=== PATIENT | male | born 1960 | race Caucasian/White ===

== ENCOUNTER 2016-12-08 07:33 | Outpatient (CLI) | payer BC ==
--- NOTE | 2016-12-08 10:28 | RAD ---
WATER SOLUBLE BARIUM ENEMA: Date: 12/08/16 COMPARISON: 11/03/16. HISTORY: Previous diverticulitis with sigmoid colon leak. Evaluate for possible resolution of leak. FINDINGS: Initial community artist radiograph demonstrates calcifications projecting over both renal silhouettes. The patient was administered water soluble contrast. There was evidence of a small leak in the mid s igmoid colon. The degree of leak has decreased when compared to the prior examination. Water soluble contrast does opacify the majority of the colon, down to the level of the cecum. IMPRESSION: Leak along the antemesenteric portion of the mid sigmoid colon. POS: [facility]
[2016-12-08] MEDS ORDERED: MD-Gastroview 120 ML BOT ONE (15:07)
== END 2016-12-08 07:34 | disposition home or self-care (01) ==
LOC: RAD 07:33
PROVIDERS: ATTEND Surgery
DX: K94.13 Enterostomy malfunction (principal)
CPT/HCPCS: 74270

== ENCOUNTER 2016-12-17 07:24 | Outpatient (CLI) | payer BC ==
--- NOTE | 2016-12-17 09:53 | CT ---
CT ABDOMEN AND PELVIS WITHOUT IV CONTRAST: Technique: Multiple axial tomograms were obtained through the abdomen and pelvis without IV enhancem ent. Rectal contrast was administered. History: Evaluate for colostomy reversal. FINDINGS: Lung bases are clear. Liver, spleen, pancreas unremarkable. Adrenal glands unremarkable. Both kidneys show numerous nonobstructing calculi in the upper collecting structures of both kidneys . Ureters are normal. Urinary bladder is unremarkable in appearance. Patient has a diverting ileostomy in the right abdomen. There is a right abdominal wall defect at th e ostomy. Opacified colon enters this defect in the subcutaneous tissues. Small bowel loops are norm al caliber with no evidence of bowel obstruction. There is anastomosis at the mid sigmoid. There is evidence of mild luminal narrowing at this anastom osis, however, there is no evidence of extravasation or leak at the anastomosis. There is a fluid collection in the subcutaneous adipose tissue seen in the midline and to the left o f midline which measures approximately 5 cm AP dimension x 12 cm width. IMPRESSION: 1. No evidence of anastomotic leak. There is luminal narrowing at the anastomosis. 2. Fluid dense collection in the subcutaneous adipose tissue anterior and to the left of midline. Findings were discussed with Dr. Cortes. POS: [facility]
[2016-12-17] MEDS ORDERED: Iopamidol 370 76% 50 ML VIAL FS ONE (15:59)
== END 2016-12-17 07:25 | disposition home or self-care (01) ==
LOC: CT 07:24
PROVIDERS: ATTEND Surgery
DX: K57.92 Diverticulitis of intestine, part unspecified, without perforation or abscess without bleeding (principal); K63.89 Other specified diseases of intestine
CPT/HCPCS: 74176

== ENCOUNTER 2017-01-05 08:30 | Outpatient (CLI) | payer BC ==
[2017-01-05 09:47] LABS: #Basophils 0.1 thou/uL (0.0-0.2); #Eosinphils 0.3 thou/uL (0.0-0.7); #Lymphocytes 1.8 thou/uL (1.20-3.40); #Monocytes 0.6 thou/uL (0.11-0.59); #Neutrophils 3.8 thou/uL (1.40-6.50); %Basophils 1.1 % (0.0-1.0); %Eosinophils 4.9 % (0.0-10.0); %Lymphocytes 26.8 % (21.0-51.0); %Monocytes 9.1 % (0.0-10.0); Hematocrit 44.9 % (42.0-52.0); Mean Platelet Volume 7.9 fL (7.4-10.4); Red Blood Cell (RBC) Count 5.17 mill/uL (4.70-6.10); White Blood Cell (WBC) Count 6.6 thou/uL (4.8-10.8)
[2017-01-05 09:56] LABS: Anion Gap 11 mmol/L (10-20); BUN (Urea Nitrogen) 23 mg/dL (8.4-25.7); Calc. Creatinine Clearance 0 mL/min (70-130); Calcium 9.4 mg/dL (7.8-10.44); Carbon Dioxide 27 mmol/L (22-29); Chloride 106 mmol/L (98-107); Estimated GFR-MDRD 63
== END 2017-01-05 08:31 | disposition home or self-care (01) ==
LOC: LABBT 08:30
PROVIDERS: ATTEND Surgery
DX: Z01.812 Encounter for preprocedural laboratory examination (principal); K57.92 Diverticulitis of intestine, part unspecified, without perforation or abscess without bleeding; K94.13 Enterostomy malfunction
CPT/HCPCS: 80048; 85025; 93005; 93010

== ENCOUNTER 2017-01-05 08:30 | Inpatient (IN) | payer BC ==
[2017-01-05 08:52] VITALS: BMI 37.8
[2017-01-12] MEDS ORDERED: cefOXitin 2 GM, Syringe 1 ML in Sterile Water 10 ML SLOW IVP SCH (12:30)
[2017-01-12] MEDS ORDERED: Propofol 200 MG/20 ML VIAL ONE (13:28)
[2017-01-12] MEDS ORDERED: Labetalol HCl 100 MG/20 ML VIAL ONE (13:28)
[2017-01-12] MEDS ORDERED: Ondansetron HCl/PF 4 MG/2 ML Vial ONE (13:28)
[2017-01-12] MEDS ORDERED: Lidocaine 1% PF 5 ML VIAL ONE (13:28)
[2017-01-12] MEDS ORDERED: ePHEDrine/0.9% NaCl/PF SYRINGE 50 mg/10 ml ONE (13:28)
[2017-01-12] MEDS ORDERED: Glycopyrrolate 0.2 MG/ML 5 ML SYRINGE ONE (13:28)
[2017-01-12] MEDS ORDERED: PHENYLEPHRINE-NS 100 MCG/ML 10 ML SYRINGE ONE (13:28)
[2017-01-12] MEDS ORDERED: Fentanyl 250 MCG/5 ML VIAL ONE (13:37)
[2017-01-12] MEDS ORDERED: Fentanyl 100 MCG/2 ML VIAL ONE ×4 (15:28→16:39)
[2017-01-12] MEDS ORDERED: Promethazine HCl 25 MG/ML VIAL IM PRN ×2 (16:06→19:24)
[2017-01-12] MEDS ORDERED: Ondansetron HCl/PF 4 MG/2 ML Vial IVP PRN ×2 (16:06→19:24)
[2017-01-12] MEDS ORDERED: Promethazine HCl 25 MG/ML VIAL SLOW IVP PRN (16:06)
[2017-01-12] MEDS ORDERED: Morphine CADD 1 MG/ML CADD IVPB PRN (16:07)
[2017-01-12] MEDS ORDERED: Zolpidem Tartrate 5 MG TAB PO PRN (16:07)
[2017-01-12] MEDS ORDERED: Naloxone HCl 0.4 mg/ml Vial IV PRN (16:07)
[2017-01-12] MEDS ORDERED: Morphine CADD 100 ML ONE (16:12)
[2017-01-12] MEDS ORDERED: Communication Order-Pharmacy FS SCH (16:15)
--- NOTE | 2017-01-12 18:46 | OP ---
DATE OF PROCEDURE: 01/12/2017 PREOPERATIVE DIAGNOSES: History of diverticulitis, attention to ileostomy. POSTOPERATIVE DIAGNOSES: History of diverticulitis, attention to ileostomy, incisional hernia. PROCEDURES: 1. Ileostomy takedown with small bowel to small bowel anastomosis. 2. Incisional hernia repair with 6 x 8 cm Strattice mesh. SURGEON: Papito Cortes M.D. ANESTHESIA: General. ESTIMATED BLOOD LOSS: 50 mL COMPLICATIONS: None. FINDINGS: Incisional hernia at ileostomy site with extensive herniation of small bowel, even cecum i nto the subcu fat in the right lower quadrant INDICATION: The patient is a 56-year-old male who previously underwent left colectomy and incisional hernia repair for chronic diverticulitis, now presents for ileostomy takedown, has a known incisiona l hernia to repair at the same time. DESCRIPTION OF PROCEDURE: The patient was taken to the operating room and placed supine on the table . After general anesthetic was obtained, the Bryan catheter was placed. The abdomen was shaved, pre pped and draped in a sterile fashion. The ostomy mucosa had been sewn using pursestring of silk. El liptical incision was used to ellipse out the ileostomy site. Subcu fat was dissected out from the i leostomy. Dissection was taken down all the way to the fascia. There were several loops of small amber wel in the part of the cecum more in this hernia sac. All dissected back to the fascial edge. All a dhesions were taken down into the abdomen through the ileostomy muscle defect. LETICIA-75 was used to fi re across the small bowel proximal and distal to the ileostomy site. The common mesentery was taken using Naomy clamps and silk ties. The small bowel was able to be brought together in an antimesenter ic fashion. Enterotomy was made on the antimesenteric surface of each and a LETICIA-75 was used to form the anastomosis. TA-60 was used to close the common enterotomy, crotches and the corners were all ov ersewn using silk suture. Mesenteric defect was closed using silk suture. The small bowel cecum bonilla rything placed back into the abdominal cavity under no tension. A 6 x 8 cm piece of Strattice mesh brought into the sterile field, placed in an underlay fashion, sewn via U stitch of Prolene transfasc ial circumferentially to the posterior fascia. The anterior fascia was closed using running PDS over the top. This subcutaneous space was irrigated using copious amounts of sterile solution. There wa s no ongoing bleeding. A #19 round drain brought out through a stab incision and left in this large cavity. Skin was closed using running 3-0 Vicryl followed by skin clips. Telfa carmen were placed in between each incision. Sterile dressings were placed. Patient was en route to recovery in stable c ondition. All instrument counts, needle counts, and lap counts were correct.
[2017-01-12] MEDS ORDERED: hydrALAZINE 20 MG/ML VIAL SLOW IVP PRN (19:24)
[2017-01-12] MEDS: Amlodipine 5 MG TAB PO SCH (21:44)
[2017-01-12] MEDS: Acetaminophen 1,000 MG in Premix Bag 1 BAG IVPB SCH (21:52)
[2017-01-12] MEDS: cefOXitin 2 GM, Syringe 1 ML in Sterile Water 10 ML SLOW IVP SCH (21:53)
[2017-01-12] MEDS: Famotidine 20 MG TAB PO SCH (21:56)
[2017-01-12] MEDS: Sodium Chloride 0.9% 1,000 ML IV SCH (21:56)
[2017-01-12] MEDS: Famotidine/PF 20 mg/2ml Vial SLOW IVP SCH (21:56)
[2017-01-12] MEDS ORDERED: cefOXitin 2 GM in Sodium Chloride 0.9% 100 ML IVPB SCH (22:00)
[2017-01-13] MEDS: Acetaminophen 1,000 MG in Premix Bag 1 BAG IVPB SCH ×3 (02:59→15:25)
[2017-01-13 05:45] LABS: #Eosinphils 0.2 thou/uL (0.0-0.7); #Lymphocytes 0.9 thou/uL (1.20-3.40); #Monocytes 0.6 thou/uL (0.11-0.59); #Neutrophils 7.8 thou/uL (1.40-6.50); %Basophils 0.1 % (0.0-1.0); %Eosinophils 2.4 % (0.0-10.0); %Lymphocytes 9.4 % (21.0-51.0); %Monocytes 6.7 % (0.0-10.0); Hematocrit 46.9 % (42.0-52.0); Red Blood Cell (RBC) Count 5.43 mill/uL (4.70-6.10); White Blood Cell (WBC) Count 9.6 thou/uL (4.8-10.8)
[2017-01-13 06:06] LABS: Anion Gap 10 mmol/L (10-20); BUN (Urea Nitrogen) 16 mg/dL (8.4-25.7); Calc. Creatinine Clearance 136 mL/min (70-130); Calcium 8.4 mg/dL (7.8-10.44); Carbon Dioxide 23 mmol/L (22-29); Chloride 103 mmol/L (98-107); Estimated GFR-MDRD 74
[2017-01-13] MEDS: cefOXitin 2 GM, Syringe 1 ML in Sterile Water 10 ML SLOW IVP SCH (06:09)
[2017-01-13] MEDS ORDERED: FLU VACC QS2017-18 36 mo. & older 0.5 ML SYRINGE IM ONE (09:00)
--- NOTE | 2017-01-13 09:00 | RAD ---
UPRIGHTI AND SUPINE VIEWS OF THE ABDOMEN: Date: 01-13-17 History: Drain placement. Comparison: 10-01-16 FINDINGS: Skin clips overlie the pelvis with radiopaque suture material seen overlying the right lower quadrant as well as the pelvis. There is partial visualization of drainage catheter overlying and just latera l to the right iliac wing. There is contrast seen within the colon and a few loops of small bowel. Th ere is mild gaseous distention and dilatation of a loop of small bowel in the left upper quadrant. There are increased density foci overlying the upper quadrant bilaterally which overlie the region of the renal shadows and was also present on the prior study and may be related to bilateral renal calc ashley. Degenerative changes are seen in the spine. IMPRESSION: 1. Post-surgical changes of the abdomen and pelvis. 2. Bilateral nephrolithiasis. 3. Nonspecific mildly dilated gas filled loop of small bowel in the left upper quadrant. POS: [facility]
[2017-01-13] MEDS: Famotidine 20 MG TAB PO SCH ×2 (09:37→21:14)
[2017-01-13] MEDS: Famotidine/PF 20 mg/2ml Vial SLOW IVP SCH ×2 (09:40→22:09)
[2017-01-13] MEDS ORDERED: Sodium Chloride 0.9% 1,000 ML IV SCH (13:31)
--- NOTE | 2017-01-13 13:43 | PRG ---
DATE OF SERVICE: 01/13/2017 Mr. Wiley is doing well, no nausea. He is ambulating without difficulty. He has urinated with the catheter out. PHYSICAL EXAMINATION: VITAL SIGNS: He is afebrile. Vital signs are stable. ABDOMEN: Soft. Dressings are clear. LABORATORY: White cell count is 9, hemoglobin 14. Creatinine 1.03. ASSESSMENT: Postop day #1 ileostomy takedown. PLAN: Advance to full liquid diet. If he tolerates that tonight, then discontinue [employer] tomorrow, pos sible home.
[2017-01-13] MEDS: Ketorolac Tromethamine 30 MG/ML VIAL IVP SCH ×2 (15:25→21:20)
[2017-01-13] MEDS: Sodium Chloride 0.9% 1,000 ML IV SCH (19:44)
[2017-01-13] MEDS: Amlodipine 5 MG TAB PO SCH (21:14)
[2017-01-14] MEDS: Ketorolac Tromethamine 30 MG/ML VIAL IVP SCH (06:01)
[2017-01-14] MEDS: Famotidine 20 MG TAB PO SCH (09:12)
[2017-01-14] MEDS: Famotidine/PF 20 mg/2ml Vial SLOW IVP SCH (09:13)
[2017-01-14] MEDS ORDERED: HYDROcodone/Acetaminophen 10/325 mg Tablet PO PRN (09:57)
[2017-01-14] MEDS ORDERED: Morphine 4 MG/ML VIAL SLOW IVP PRN ×2 (11:40)
[2017-01-14] MEDS: HYDROcodone/Acetaminophen 10/325 mg Tablet PO PRN ×2 (11:53→15:46)
[2017-01-14 12:06] VITALS: BP 142/88; TEMP 98.5
--- NOTE | 2017-01-14 14:03 | DIS ---
DATE OF ADMISSION: 01/12/2017 DATE OF DISCHARGE: 01/14/2017 ADMIT DIAGNOSIS: History of diverticulitis with attention to ileostomy. PROCEDURES: Ileostomy takedown and hernia repair by Dr. Cortes without complication. CONDITION AT DISCHARGE: Improved. STAFF: Dr. Cortes. HOSPITAL COURSE: On postop day 2, the patient is doing well. He is tolerating the full liquid diet. Pain is controlled on oral [place]. He is ambulatory and he has got serosanguineous output from his drain. He will be discharged home to follow up with me next week for drain removal.
== END 2017-01-14 16:25 | disposition home or self-care (01) | DRG 331 ==
LOC: 2NO 01-12 11:37 → SURG A 01-12 18:01
PROVIDERS: ADMIT Surgery; ATTEND Surgery
PROC: 0DBB0ZZ Excision of Ileum, Open Approach (ICD-10-PCS; principal; 2017-01-12)
PROC: 0WUF0JZ Supplement Abdominal Wall with Synthetic Substitute, Open Approach (ICD-10-PCS; 2017-01-12)
DX: K94.19 Other complications of enterostomy (principal); K43.2 Incisional hernia without obstruction or gangrene; Z87.19 Personal history of other diseases of the digestive system; Z23 Encounter for immunization
CPT/HCPCS: 36415; 36416; 74020; 80048; 85025; 90471; 90682; A4216; C1768; G0008; J0131; J0360; J0694; J1885; J2001; J2274; J2405; J2550; J2704; J3010; Q2036

== ENCOUNTER 2018-01-18 20:30 | Outpatient (CLI) | payer BC | END 2018-01-18 20:31 | disposition home or self-care (01) | LOC: SLEEPLAB 20:30 | PROVIDERS: ATTEND Family Medicine | DX: G47.33 Obstructive sleep apnea (adult) (pediatric) (principal); R53.83 Other fatigue; R40.0 Somnolence; R06.83 Snoring; G47.00 Insomnia, unspecified; K21.9 Gastro-esophageal reflux disease without esophagitis; E66.9 Obesity, unspecified; I10 Essential (primary) hypertension; Z68.39 Body mass index [BMI] 39.0-39.9, adult | CPT/HCPCS: 95810 ==

== ENCOUNTER 2018-02-05 19:30 | Outpatient (CLI) | payer BC | END 2018-02-05 19:31 | disposition home or self-care (01) | LOC: SLEEPLAB 19:30 | PROVIDERS: ATTEND Family Medicine | DX: G47.10 Hypersomnia, unspecified (principal); G47.33 Obstructive sleep apnea (adult) (pediatric); R53.83 Other fatigue; R40.0 Somnolence; E66.9 Obesity, unspecified; K21.9 Gastro-esophageal reflux disease without esophagitis; R06.83 Snoring; I10 Essential (primary) hypertension; Z68.39 Body mass index [BMI] 39.0-39.9, adult | CPT/HCPCS: 95810 ==

== ENCOUNTER 2018-07-14 08:48 | Inpatient (IN) | payer BC ==
[2018-07-14 09:24] LABS: #Eosinphils 0.1 thou/uL (0.0-0.7); #Lymphocytes 0.9 thou/uL (1.20-3.40); #Monocytes 0.6 thou/uL (0.11-0.59); #Neutrophils 7.4 thou/uL (1.40-6.50); %Basophils 0.4 % (0.0-1.0); %Eosinophils 1.5 % (0.0-10.0); %Lymphocytes 10.1 % (21.0-51.0); %Monocytes 6.2 % (0.0-10.0); %Neutrophils 81.8 % (42.0-75.0); Mean Corpuscular HGB CONC 32.1 g/dL (32.0-36.0); Mean Corpuscular Hemoglobin 29.1 pg (27.0-31.0); Mean Corpuscular Volume 90.7 fL (78.0-98.0); Mean Platelet Volume 7.6 fL (7.4-10.4); Platelet Count 183 thou/uL (130-400); RBC Distribution Width 15.1 % (11.5-14.5); Red Blood Cell (RBC) Count 5.83 mill/uL (4.70-6.10)
[2018-07-14 09:30] LABS: Bacteria/HPF None Seen HPF (None Seen); Bilirubin Negative (Negative); Blood, Urine Large (Negative); Clarity CLOUDY (Clear); Glucose, Urine (Dipstick) Negative (Negative); Hyaline Casts/LPF 0-3 HYALINE CAST LPF (0-3 Hyaline); Leukocyte Small (Negative); Nitrite Negative (Negative); Pathc Cast-AUWi Flag 0.27 (0-2.49); Protein, Urine (Dipstick) Negative (Neg-Trace); RBC/HPF GREATER THAN 50-TNTC HPF (0-3); Specific Gravity, Urine 1.017 (1.002-1.036); Squamous Epithelial None Seen HPF (0-3); Urobilinogen 0.2 mg/dL (0.2-1.0)
[2018-07-14] MEDS ORDERED: Morphine 4 MG/ML VIAL ONE ×2 (09:37→13:14)
[2018-07-14] MEDS ORDERED: Ondansetron PF 4 MG/2 ML Vial ONE ×3 (09:37→15:38)
[2018-07-14 09:50] LABS: ALT (SGPT) 26 U/L (8-55); AST (SGOT) 24 U/L (5-34); Albumin 4.6 g/dL (3.5-5.0); Alkaline Phosphatase 55 U/L (40-150); Anion Gap 15 mmol/L (10-20); BUN (Urea Nitrogen) 23 mg/dL (8.4-25.7); Calc. Creatinine Clearance 0 mL/min (70-130); Calcium 10.8 mg/dL (7.8-10.44); Carbon Dioxide 24 mmol/L (22-29); Chloride 104 mmol/L (98-107); Estimated GFR-MDRD 62; Globulin 3.3 g/dL (2.4-3.5); Glucose 112 mg/dL (70-105); Lipase 23 U/L (8-78); Potassium 4.9 mmol/L (3.5-5.1); Protein, Total 7.9 g/dL (6.0-8.3); Sodium 138 mmol/L (136-145)
[2018-07-14] MEDS ORDERED: Iopamidol 370 76% 50 ML VIAL FS ONE (11:23)
[2018-07-14] MEDS ORDERED: ISOVUE-370 76%-LOCM 1 ML ONE (11:23)
--- NOTE | 2018-07-14 12:42 | CT ---
CT ABDOMEN PELVIS WITH ORAL AND IV CONTRAST: HISTORY: Abdominal pain, nausea, vomiting COMPARISON: 12/17/2016 FINDINGS: The lung bases are unremarkable. The liver demonstrates decreased attenuation consistent with fatty i nfiltration but no focal mass or intrahepatic ductal dilatation. The spleen, pancreas, adrenal glands and right kidney are normal. Multiple nonobstructing left renal calculi present. No calcified gallstones are seen. There is a left-sided the fluid collection in the anterior abdominal wall musculature at the level of the umbilicus measuring 8.1 x 3.8 cm which is smaller compared to the previous study and likely postop seroma. There is a small bowel loop containing right lower anterior abdominal wall hernia with dilated affere nt loops. There is suggestion of mild inflammatory changes in the hernial sac. Normal-appearing appendix is seen. There are vascular calcifications without evidence of aneurysmal d ilatation of the abdominal aorta. There are degenerative changes in the spine. Small bilateral fat-containing inguinal hernias are seen. IMPRESSION: 1. RIGHT LOWER QUADRANT ABDOMINAL WALL HERNIA CONTAINING LOOPS OF SMALL BOWEL WITH PROBABLE OBSTRUCTI ON AND STRANGULATION. 2. Nonobstructing left renal calculi. 3. Fatty liver. Discussed over the telephone with Pricilla Mehta in the emergency room at 12:35 PM
[2018-07-14] MEDS ORDERED: Promethazine HCl 25 MG/ML VIAL IM PRN (13:51)
[2018-07-14] MEDS ORDERED: hydrALAZINE 20 MG/ML VIAL SLOW IVP PRN (13:51)
[2018-07-14] MEDS ORDERED: Dextrose 5% in Water 1,000 ML IV PRN (13:51)
[2018-07-14] MEDS ORDERED: Dextrose 50% Abboject 50 ML SYRINGE SLOW IVP PRN (13:51)
[2018-07-14] MEDS: Ondansetron PF 4 MG/2 ML Vial IVP PRN ×2 (15:44→22:42)
[2018-07-14] MEDS ORDERED: Fentanyl 100 MCG/2 ML VIAL SLOW IVP PRN (16:03)
--- NOTE | 2018-07-14 16:04 | HP ---
CHIEF COMPLAINT: Incisional hernia. 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 This was previously repaired by me. He had diverting ileostomy, ultimately underwent ileostomy reversal. At the time of ileostomy reversal, he had a large ostomy site hernia that was repaired with Strattice mesh. The patient has been doing quite well. He has been losing weight per my recommendations by doing a low carb diet. However, last night, he developed acute onset of right lower quadrant pain in the area of previous ileostomy reversal and has a bulge in the area. Seen in Emergency Department today, where CT scan shows incisional hernia. There is some intestine in the hernia itself. He did not vomit, but he had some nausea and bloating. The pain has resolved, unable to reduce it partially in the emergency room. He is nontachycardic and his infectious count is normal and he is afebrile. PAST MEDICAL HISTORY: Includes hypertension, hyperlipidemia, and morbid obesity. PAST SURGICAL HISTORY: As above. MEDICATIONS: Medicines taken daily include; 1. Crestor. 2. Amlodipine. 3. Potassium. ALLERGIES: LEVOFLOXACIN. SOCIAL HISTORY: No smoking, alcohol, or other drugs. REVIEW OF SYSTEMS: A 10-system review of systems otherwise negative unless described above. PHYSICAL EXAMINATION: VITAL SIGNS: His blood pressure is 147/87, his pulse is 83, respirations 20, and he is afebrile. HEENT: Sclerae anicteric. Oropharynx clear. NECK: No lymphadenopathy. CHEST: Clear. HEART: Regular rate and rhythm. ABDOMEN: Soft, mildly distended diffusely. No significant tenderness. He is tender in the area of the right lower quadrant. I was able to partially reduce his incisional hernia. LABORATORY DATA: White blood cell count is 9, hemoglobin is 17, and platelet count is 183. Sodium 138, potassium 4.9, creatinine 1.2, and glucose is 112. ASSESSMENT: Incisional hernia incarcerated small intestine, able to be reduced partially. No evidence of strangulation. PLAN: We will admit to the hospital tonight. Plan laparoscopic incisional hernia repair tomorrow. Job ID: [id number]
[2018-07-14] MEDS: Fentanyl 100 MCG/2 ML VIAL SLOW IVP PRN ×2 (16:25→20:18)
[2018-07-14] MEDS: D5 1/2 NS w/20 mEq KCL 1,000 ML IV SCH ×2 (16:25→22:47)
[2018-07-14] MEDS: Acetaminophen 1,000 MG in Premix Bag 1 BAG IVPB PRN ×2 (16:27→22:41)
[2018-07-14 17:38] VITALS: BMI 24.9
[2018-07-14] MEDS: Famotidine/PF 20 mg/2ml Vial SLOW IVP SCH (20:18)
[2018-07-14] MEDS ORDERED: Enoxaparin Sodium 40 MG/0.4 ML SYRINGE SC SCH (21:00)
[2018-07-15] MEDS: Acetaminophen 1,000 MG in Premix Bag 1 BAG IVPB PRN ×2 (04:42→10:22)
[2018-07-15] MEDS: D5 1/2 NS w/20 mEq KCL 1,000 ML IV SCH ×3 (05:37→18:51)
[2018-07-15 06:09] LABS: #Eosinphils 0.1 thou/uL (0.0-0.7); #Lymphocytes 1.5 thou/uL (1.20-3.40); #Monocytes 0.7 thou/uL (0.11-0.59); #Neutrophils 5.9 thou/uL (1.40-6.50); %Basophils 0.6 % (0.0-1.0); %Eosinophils 1.2 % (0.0-10.0); %Lymphocytes 18.2 % (21.0-51.0); %Monocytes 8.7 % (0.0-10.0); %Neutrophils 71.4 % (42.0-75.0); Hemoglobin 15.6 g/dL (14.0-18.0); Mean Corpuscular HGB CONC 31.1 g/dL (32.0-36.0); Mean Corpuscular Hemoglobin 28.5 pg (27.0-31.0); Mean Corpuscular Volume 91.9 fL (78.0-98.0); Mean Platelet Volume 8.3 fL (7.4-10.4); Platelet Count 173 thou/uL (130-400); RBC Distribution Width 15.1 % (11.5-14.5); Red Blood Cell (RBC) Count 5.48 mill/uL (4.70-6.10); White Blood Cell (WBC) Count 8.3 thou/uL (4.8-10.8)
[2018-07-15 06:36] LABS: Anion Gap 10 mmol/L (10-20); BUN (Urea Nitrogen) 17 mg/dL (8.4-25.7); Calc. Creatinine Clearance 81 mL/min (70-130); Calcium 9.4 mg/dL (7.8-10.44); Carbon Dioxide 27 mmol/L (22-29); Chloride 105 mmol/L (98-107); Estimated GFR-MDRD 68; Glucose 110 mg/dL (70-105); Potassium 4.4 mmol/L (3.5-5.1); Sodium 138 mmol/L (136-145)
[2018-07-15] MEDS: Famotidine/PF 20 mg/2ml Vial SLOW IVP SCH ×2 (08:44→21:03)
[2018-07-15] MEDS: Fentanyl 100 MCG/2 ML VIAL SLOW IVP PRN (08:48)
[2018-07-15] MEDS ORDERED: Midazolam HCl 2 mg/2 ml Vial ONE (13:00)
[2018-07-15] MEDS ORDERED: Fentanyl 100 MCG/2 ML VIAL ONE ×2 (13:00→16:17)
[2018-07-15] MEDS ORDERED: Bupivacaine/Epinephrine 0.25% 30 ML VIAL ONE (13:43)
[2018-07-15] MEDS ORDERED: Rocuronium Bromide 10 MG/ML (10ML VIAL) ONE (15:05)
[2018-07-15] MEDS ORDERED: Glycopyrrolate 0.2 MG/ML 5 ML SYRINGE ONE (15:05)
[2018-07-15] MEDS ORDERED: Ketorolac Tromethamine 30 MG/ML VIAL ONE (15:05)
[2018-07-15] MEDS ORDERED: PROPOFOL 200 MG/20 ML VIAL ONE (15:05)
[2018-07-15] MEDS ORDERED: Lidocaine 1% PF 5 ML VIAL ONE (15:05)
[2018-07-15] MEDS ORDERED: Ondansetron PF 4 MG/2 ML Vial ONE (15:05)
[2018-07-15] MEDS ORDERED: Promethazine HCl 25 MG/ML VIAL SLOW IVP PRN (16:41)
[2018-07-15] MEDS ORDERED: diphenhydrAMINE 50 MG/ML VIAL IVP PRN (16:41)
[2018-07-15] MEDS ORDERED: diphenhydrAMINE 25 MG CAP PO PRN (16:41)
[2018-07-15] MEDS ORDERED: Promethazine HCl 25 MG/ML VIAL IM PRN ×3 (16:41→17:44)
[2018-07-15] MEDS ORDERED: Ondansetron HCl/PF 4 MG/2 ML Vial IVP PRN (16:41)
[2018-07-15] MEDS ORDERED: Zolpidem Tartrate 5 MG TAB PO PRN (16:41)
[2018-07-15] MEDS ORDERED: Naloxone HCl 0.4 mg/ml Vial IV PRN (16:41)
[2018-07-15] MEDS ORDERED: HYDROmorphone 2 MG/ML VIAL SLOW IVP PRN (16:41)
[2018-07-15] MEDS ORDERED: diphenhydrAMINE 50 MG/ML VIAL IM PRN (16:41)
[2018-07-15] MEDS ORDERED: Ondansetron PF 4 MG/2 ML Vial IVP PRN ×2 (16:41→17:44)
[2018-07-15] MEDS ORDERED: fentaNYL Citrate/PF 2,000 MCG in Sodium Chloride 0.9% 60 ML IV PRN (16:41)
[2018-07-15] MEDS ORDERED: Communication Order-Pharmacy FS SCH (16:45)
[2018-07-15] MEDS ORDERED: hydrALAZINE 20 MG/ML VIAL SLOW IVP PRN (17:44)
[2018-07-15] MEDS: Acetaminophen 1,000 MG in Premix Bag 1 BAG IVPB SCH ×2 (18:51→23:43)
[2018-07-15] MEDS: Famotidine 20 MG TAB PO SCH (21:03)
[2018-07-15] MEDS: cefOXitin Sodium/Dextrose,Iso 2 GM in Premix Bag 1 BAG IVPB SCH (21:03)
[2018-07-16] MEDS: D5 1/2 NS w/20 mEq KCL 1,000 ML IV SCH ×3 (04:44→20:33)
[2018-07-16 05:06] LABS: #Eosinphils 0.1 thou/uL (0.0-0.7); #Lymphocytes 0.5 thou/uL (1.20-3.40); #Monocytes 0.5 thou/uL (0.11-0.59); #Neutrophils 4.8 thou/uL (1.40-6.50); %Eosinophils 2.1 % (0.0-10.0); %Lymphocytes 8.7 % (21.0-51.0); %Monocytes 9.1 % (0.0-10.0); %Neutrophils 80.1 % (42.0-75.0); Hemoglobin 15.6 g/dL (14.0-18.0); Mean Corpuscular HGB CONC 31.8 g/dL (32.0-36.0); Mean Corpuscular Hemoglobin 29.7 pg (27.0-31.0); Mean Corpuscular Volume 93.5 fL (78.0-98.0); Mean Platelet Volume 8.1 fL (7.4-10.4); Platelet Count 149 thou/uL (130-400); RBC Distribution Width 15.2 % (11.5-14.5); Red Blood Cell (RBC) Count 5.25 mill/uL (4.70-6.10); White Blood Cell (WBC) Count 5.9 thou/uL (4.8-10.8)
[2018-07-16 05:29] LABS: Anion Gap 9 mmol/L (10-20); BUN (Urea Nitrogen) 18 mg/dL (8.4-25.7); Calc. Creatinine Clearance 72 mL/min (70-130); Calcium 8.4 mg/dL (7.8-10.44); Carbon Dioxide 26 mmol/L (22-29); Chloride 106 mmol/L (98-107); Estimated GFR-MDRD 59; Glucose 131 mg/dL (70-105); Potassium 4.8 mmol/L (3.5-5.1); Sodium 136 mmol/L (136-145)
[2018-07-16] MEDS: Acetaminophen 1,000 MG in Premix Bag 1 BAG IVPB SCH ×2 (05:36→12:06)
[2018-07-16] MEDS: cefOXitin Sodium/Dextrose,Iso 2 GM in Premix Bag 1 BAG IVPB SCH (06:12)
--- NOTE | 2018-07-16 07:16 | PDOC.GSPN ---
Surgery Progress Note: Subj - Subjective Patient reports: no new complaints, pain well controlled (05/26 - decreases effectively with IV tylenol and occasional sonoscope operator use), tolerating liquids well Surgery Progress Note: Obj - Vital signs Vital signs: Vital Signs - Most Recent Temp Pulse Resp BP Pulse Ox 98.9 F 88 18 115/76 94 L 07/16/18 04:00 07/16/18 04:00 07/16/18 04:00 07/16/18 04:00 07/16/18 04:00 - Physical Exam General: no distress Cardiovascular: regular rate and rhythm Respiratory: clear to auscultation, normal expansion, normal respiratory effort , breath sounds present Abdomen: soft, nondistended, appropriately tender Wound: dressing clean,dry,intact, healing well Surgery Progress Note: Results - Labs Result Diagrams: 07/16/18 04:28 07/16/18 04:28 Lab results: Laboratory Results - last 24 hr 07/16/18 07/16/18 04:28 04:28 WBC 5.9 RBC 5.25 Hgb 15.6 Hct 49.1 MCV 93.5 MCH 29.7 MCHC 31.8 L RDW 15.2 H Plt Count 149 MPV 8.1 Neutrophils % 80.1 H Lymphocytes % 8.7 L Monocytes % 9.1 Eosinophils % 2.1 Basophils % 0.0 Neutrophils # 4.8 Lymphocytes # 0.5 L Monocytes # 0.5 Eosinophils # 0.1 Basophils # 0.0 Sodium 136 Potassium 4.8 Chloride 106 Carbon Dioxide 26 Anion Gap 9 L BUN 18 Creatinine 1.25 Estimated GFR (MDRD) 59 Glucose 131 H Calcium 8.4 Surgery Progress Note: A/P - Problem (1) Incarcerated hernia Current Visit: Yes Code(s): K46.0 - UNSP ABDOMINAL HERNIA WITH OBSTRUCTION, WITHOUT GANGRENE Status: Acute (2) Hx of ileostomy Current Visit: No Code(s): Z98.890 - OTHER SPECIFIED POSTPROCEDURAL STATES Status: Resolved - Plan Plan: Post-op day 1 of laparoscopic hernia repair converted to open incarcerated incisional hernia repair. Clear liquids well tolerated. Ambulated this AM. -Progress to full liquid diet later today. -Consider removal of sonoscope operator when IV tylenol is sufficient for pain control. Addendum - Physician - Physician Attestation Date/Time: 07/16/18 0846 I personally performed or re-performed the physical examination and medical decision making. I have verified all student documentation or findings, including history, physical exam and/or medical decision making.
--- NOTE | 2018-07-16 08:27 | PDOC.GSPN ---
Surgery Progress Note: Subj - Subjective Narrative: Pain well controlled. No nausea with clears. Garcia out Surgery Progress Note: Obj - Vital signs Vital signs: Vital Signs - Most Recent Temp Pulse Resp BP Pulse Ox 98.9 F 88 18 115/76 94 L 07/16/18 04:00 07/16/18 04:00 07/16/18 04:00 07/16/18 04:00 07/16/18 04:00 - Physical Exam General: no distress Cardiovascular: regular rate and rhythm Respiratory: clear to auscultation Abdomen: soft, appropriately tender Wound: dressing clean,dry,intact Surgery Progress Note: Results - Labs Result Diagrams: 07/16/18 04:28 07/16/18 04:28 Lab results: Laboratory Results - last 24 hr 07/16/18 07/16/18 04:28 04:28 WBC 5.9 RBC 5.25 Hgb 15.6 Hct 49.1 MCV 93.5 MCH 29.7 MCHC 31.8 L RDW 15.2 H Plt Count 149 MPV 8.1 Neutrophils % 80.1 H Lymphocytes % 8.7 L Monocytes % 9.1 Eosinophils % 2.1 Basophils % 0.0 Neutrophils # 4.8 Lymphocytes # 0.5 L Monocytes # 0.5 Eosinophils # 0.1 Basophils # 0.0 Sodium 136 Potassium 4.8 Chloride 106 Carbon Dioxide 26 Anion Gap 9 L BUN 18 Creatinine 1.25 Estimated GFR (MDRD) 59 Glucose 131 H Calcium 8.4 Surgery Progress Note: A/P - Problem (1) Incarcerated hernia Current Visit: Yes Code(s): K46.0 - UNSP ABDOMINAL HERNIA WITH OBSTRUCTION, WITHOUT GANGRENE Status: Acute - Plan Plan: POD 1 -advance to fulls -garcia out -home in next few days
[2018-07-16] MEDS: Losartan 25 MG TAB PO SCH (08:49)
[2018-07-16] MEDS: Famotidine/PF 20 mg/2ml Vial SLOW IVP SCH ×2 (08:49→20:58)
[2018-07-16] MEDS: Famotidine 20 MG TAB PO SCH ×2 (08:50→20:30)
[2018-07-16] MEDS ORDERED: HYDROcodone/Acetaminophen 10/325 mg Tablet PO PRN (14:26)
[2018-07-16] MEDS ORDERED: traMADol HCl 50 MG TAB PO PRN (14:27)
[2018-07-16] MEDS: HYDROcodone/Acetaminophen 10/325 mg Tablet PO PRN ×2 (16:12→20:30)
[2018-07-16] MEDS: traMADol HCl 50 MG TAB PO PRN (19:28)
[2018-07-17] MEDS: HYDROcodone/Acetaminophen 10/325 mg Tablet PO PRN ×4 (00:17→20:32)
[2018-07-17] MEDS: Calcium Carbonate 500 MG ChewTAB PO PRN ×3 (02:36→20:31)
[2018-07-17] MEDS: traMADol HCl 50 MG TAB PO PRN ×3 (03:52→17:00)
[2018-07-17] MEDS: Famotidine/PF 20 mg/2ml Vial SLOW IVP SCH ×2 (08:22→19:53)
[2018-07-17] MEDS: Losartan 25 MG TAB PO SCH (08:23)
[2018-07-17] MEDS: Famotidine 20 MG TAB PO SCH ×2 (08:23→20:31)
--- NOTE | 2018-07-17 09:17 | PDOC.GSPN ---
Surgery Progress Note: Subj - Subjective Patient reports: no new complaints, tolerating liquids well Surgery Progress Note: Obj - Vital signs Vital signs: Vital Signs - Most Recent Temp Pulse Resp BP Pulse Ox 98.6 F 99 18 129/85 97 07/17/18 07:15 07/17/18 07:15 07/17/18 07:15 07/17/18 07:15 07/17/18 07:15 - Physical Exam General: no distress Respiratory: clear to auscultation Abdomen: soft, appropriately tender Wound: healing well (carmen removed. dressing replaced) Surgery Progress Note: Results - Labs Result Diagrams: 07/16/18 04:28 07/16/18 04:28 Surgery Progress Note: A/P - Problem (1) Incarcerated hernia Current Visit: Yes Code(s): K46.0 - UNSP ABDOMINAL HERNIA WITH OBSTRUCTION, WITHOUT GANGRENE Status: Acute (2) Hx of ileostomy Current Visit: No Code(s): Z98.890 - OTHER SPECIFIED POSTPROCEDURAL STATES Status: Resolved - Plan Plan: HL IV -home tomorrow if doing well
[2018-07-18] MEDS: traMADol HCl 50 MG TAB PO PRN ×3 (00:25→16:06)
[2018-07-18] MEDS: HYDROcodone/Acetaminophen 10/325 mg Tablet PO PRN ×2 (04:34→11:40)
[2018-07-18] MEDS: Losartan 25 MG TAB PO SCH (08:18)
[2018-07-18] MEDS: Famotidine 20 MG TAB PO SCH ×2 (08:18→20:22)
[2018-07-18] MEDS: Famotidine/PF 20 mg/2ml Vial SLOW IVP SCH ×2 (08:19→20:23)
[2018-07-18] MEDS ORDERED: Milk Of Magnesia 30 ML UDCUP PO SCH (09:15)
[2018-07-18] MEDS: Tamsulosin HCl 0.4 MG CAP PO SCH (09:24)
--- NOTE | 2018-07-18 09:51 | PRG ---
DATE OF SERVICE: 07/18/2018 SUBJECTIVE: Postop day 2, Mr. Wiley has no complaints of significant pain. No nausea. He has not had a bowel movement yet. He is having some postvoid residual dribbling. He is ambulatory. OBJECTIVE: VITAL SIGNS: He is afebrile. Vital signs are stable. ABDOMEN: Soft, minimally distended. Midline wound healing well. No infection. ASSESSMENT: Postop incisional hernia repair and small bowel resection. PLAN: We will add Flomax back since he is having a little difficulty and advance to GI soft diet this evening. We will give him a dose of milk of magnesia today as well. I anticipate he will be discharged tomorrow. Job ID: [id number]
[2018-07-19] MEDS: HYDROcodone/Acetaminophen 10/325 mg Tablet PO PRN ×2 (00:38→09:25)
[2018-07-19] MEDS: traMADol HCl 50 MG TAB PO PRN (05:10)
[2018-07-19] MEDS: Famotidine/PF 20 mg/2ml Vial SLOW IVP SCH (07:48)
[2018-07-19 08:34] VITALS: BP 144/91; TEMP 98.7
[2018-07-19] MEDS: Tamsulosin HCl 0.4 MG CAP PO SCH (09:27)
[2018-07-19] MEDS: Famotidine 20 MG TAB PO SCH (09:27)
[2018-07-19] MEDS: Losartan 25 MG TAB PO SCH (09:27)
--- NOTE | 2018-07-19 10:03 | DIS ---
DATE OF ADMISSION: 07/14/2018 DATE OF DISCHARGE: ADMITTING DIAGNOSIS: Incisional hernia, incarcerated. DISCHARGE DIAGNOSIS: Incisional hernia, incarcerated. PROCEDURE PERFORMED: Laparoscopic converted to open lysis of adhesions, small bowel resection and incisional hernia repair by Sebastian without complication. CONDITION ON DISCHARGE: Improved. STAFF: Papito Cortes MD HOSPITAL COURSE: The patient postop course was uneventful. He had carmen in his wound that were removed on postop day 3. His diet was slowly advanced. His pain is well controlled. He is afebrile. He is going to follow up with me in 48 hours for wound check. Job ID: [id number]
--- NOTE | 2018-07-20 11:11 | OP ---
DATE OF PROCEDURE: 07/15/2018 PREOPERATIVE DIAGNOSIS: Incisional hernia, strangulated. POSTOPERATIVE DIAGNOSIS: Incisional hernia, strangulated. PROCEDURES PERFORMED: Laparoscopic converted to open incisional hernia repair without mesh, small-bowel resection anastomosis. ANESTHESIA: General. ESTIMATED BLOOD LOSS: Minimal. COMPLICATIONS: None. SPECIMEN: Small intestine. TECHNIQUE: The patient was taken to the operating room and laid supine on the operating room table. After general anesthetic was obtained, a Bryan was placed. The abdomen was shaved, prepped, and draped in a sterile fashion. Left subcostal 5 mm Optiview trocar was placed in usual fashion and high-flow pneumoperitoneum was obtained. Upper abdominal 5 mm ports were placed and adhesiolysis was taken down from the posterior abdominal wall. Multiple adhesions were taken down to try to expose the strangulated hernia in the right lower quadrant. Robot ports were placed and docked to the robot and robotic lysis of adhesions was performed as well. Most of the adhesions were taken down. There was a small loop of intestine that was stuck up in the hernia, this could not be reduced. When it was pulled down with more tension, it tore the small bowel. Decision was made to open, midline incision was made. The small intestine was able to be removed from the hernia site. The posterior fascia was closed using running PDS suture. The small bowel was brought up and a few enterotomies proximal and distal were repaired primarily. There was an area of greater than 50% circumferential injury and this was removed using LETICIA 75 stapler. A azrn-oh-xdcl anastomosis was performed with LETICIA 75 stapler. The common enterotomy was closed using Vicryl suture. A crotch stitch was placed and the mesenteric defect was closed. The abdomen was irrigated using sterile solution. There was no other evidence of injury to any intraabdominal structures. Midline fascia was closed using #1 PDS from the top to the bottom and tied in the middle. Subcutaneous tissues were irrigated. The skin was closed loosely using skin julisa. Telfa carmen were placed in between. The patient was sent to Recovery in stable condition. All instrument counts, needle counts, and lap counts were correct. Job ID: [id number]
== END 2018-07-19 11:45 | disposition home or self-care (01) | DRG 331 ==
LOC: ERS 08:48 → ERHOLD 13:45 → SURG A 15:54
PROVIDERS: ADMIT Surgery; ATTEND Surgery
PROC: 0WQF0ZZ Repair Abdominal Wall, Open Approach (ICD-10-PCS; principal; 2018-07-15)
PROC: 0DQ80ZZ Repair Small Intestine, Open Approach (ICD-10-PCS; 2018-07-15)
PROC: 0WJF4ZZ Inspection of Abdominal Wall, Percutaneous Endoscopic Approach (ICD-10-PCS; 2018-07-15)
DX: K43.0 Incisional hernia with obstruction, without gangrene (principal); I10 Essential (primary) hypertension; E78.5 Hyperlipidemia, unspecified; E66.01 Morbid (severe) obesity due to excess calories; Z68.24 Body mass index [BMI] 24.0-24.9, adult; Z98.890 Other specified postprocedural states
CPT/HCPCS: 36415; 74177; 80048; 80053; 81003; 81015; 83605; 83690; 85025; 87040; 88307; 96361; 96374; 96375; 96376; J0131; J0360; J0690; J0694; J1650; J1885; J2001; J2250; J2270; J2405; J2704; J3010; J3490; Q9966; Q9967; S0028

== ENCOUNTER 2018-07-23 09:09 | Observation (INO) | payer BC ==
[2018-07-23] MEDS ORDERED: hydrALAZINE 20 MG/ML VIAL SLOW IVP PRN (09:32)
[2018-07-23] MEDS ORDERED: Promethazine HCl 25 MG/ML VIAL IM PRN (09:32)
[2018-07-23] MEDS ORDERED: Dextrose 50% Abboject 50 ML SYRINGE SLOW IVP PRN (09:32)
[2018-07-23] MEDS ORDERED: Dextrose 5% in Water 1,000 ML IV PRN (09:32)
[2018-07-23] MEDS ORDERED: HYDROcodone/Acetaminophen 7.5/325 mg Tablet PO PRN (09:32)
[2018-07-23] MEDS ORDERED: Sodium Chloride 0.9% 1,000 ML IV SCH (09:32)
[2018-07-23] MEDS ORDERED: Morphine 2 MG/ML SYRINGE SLOW IVP PRN (10:10)
[2018-07-23] MEDS: Morphine 4 MG/ML VIAL SLOW IVP PRN ×2 (10:35→15:56)
[2018-07-23] MEDS: Ondansetron PF 4 MG/2 ML Vial IVP PRN ×2 (10:36→15:56)
[2018-07-23] MEDS: D5 1/2 NS w/20 mEq KCL 1,000 ML IV SCH ×2 (10:37→19:03)
[2018-07-23] MEDS: Nicotine 21 MG PATCH TOP SCH (12:47)
[2018-07-23] MEDS: Piperacillin/Tazobactam 3.375 GM in Sodium Chloride 0.9% 100 ML IVPB SCH ×3 (12:47→23:34)
[2018-07-23 14:02] VITALS: BMI 25.0
--- NOTE | 2018-07-23 14:57 | HP ---
CHIEF COMPLAINT: Wound infection. HISTORY OF PRESENT ILLNESS: This is a 58-year-old male, who recently underwent exploratory laparotomy, lysis of adhesions, small bowel resection for incarcerated and strangulated former ileostomy site hernia. He had previous Strattice mesh. I had attempted to do this laparoscopic, but he had just a small area of the small bowel that was injured during dissection up in the hernia and so it was converted to an open procedure with a small-bowel resection. I saw him earlier in the week and he was doing quite well. However, in the last few days, he started to feel worse, tired, fever, feeling run down. Seen in the office this morning, where he was found to have a wound infection. I open the wound in the office. The fascia feels intact underneath you can see the old Strattice from prior surgery, but no obvious evisceration. PAST MEDICAL HISTORY: Hypertension and hyperlipidemia. PAST SURGICAL HISTORY: As above. MEDICATIONS: Taken at home: 1. Amlodipine. 2. Crestor. 3. Potassium. ALLERGIES: LEVOFLOXACIN. SOCIAL HISTORY: No smoking, alcohol, or other drugs. REVIEW OF SYSTEMS: A 10-system review of systems otherwise negative unless described above. PHYSICAL EXAMINATION: VITAL SIGNS: Blood pressure is 159/103, pulse 80, respirations 18, and temperature 98.6. CHEST: Clear. HEART: Regular rate and rhythm. ABDOMEN: Soft, mildly distended diffusely without guarding or rebound. Midline hernia with wound infection. The PDS is loose in the wound. I cannot put my finger all the way into the abdomen at any point. ASSESSMENT: Wound infection, status post incarcerated and strangulated incisional hernia repair. PLAN: Admit to hospital for IV antibiotics and wound VAC. We will do a liquid diet today since he is having nausea that can likely be advanced. Job ID: [id number]
[2018-07-23] MEDS: HYDROcodone/Acetaminophen 7.5/325 mg Tablet PO PRN ×2 (18:41→23:41)
[2018-07-23] MEDS: Enoxaparin Sodium 40 MG/0.4 ML SYRINGE SC SCH (21:46)
[2018-07-23] MEDS: Famotidine 20 MG TAB PO SCH (21:46)
[2018-07-23] MEDS: Famotidine/PF 20 mg/2ml Vial SLOW IVP SCH (21:46)
[2018-07-24] MEDS: HYDROcodone/Acetaminophen 7.5/325 mg Tablet PO PRN ×3 (05:10→21:36)
[2018-07-24] MEDS: Piperacillin/Tazobactam 3.375 GM in Sodium Chloride 0.9% 100 ML IVPB SCH ×3 (05:11→18:08)
[2018-07-24 05:34] LABS: #Basophils 0.1 thou/uL (0.0-0.2); #Eosinphils 0.2 thou/uL (0.0-0.7); #Lymphocytes 1.4 thou/uL (1.20-3.40); #Monocytes 0.8 thou/uL (0.11-0.59); #Neutrophils 5.1 thou/uL (1.40-6.50); %Basophils 0.7 % (0.0-1.0); %Eosinophils 3.2 % (0.0-10.0); %Lymphocytes 18.4 % (21.0-51.0); %Monocytes 9.9 % (0.0-10.0); %Neutrophils 67.9 % (42.0-75.0); Hemoglobin 13.7 g/dL (14.0-18.0); Mean Corpuscular HGB CONC 32.9 g/dL (32.0-36.0); Mean Corpuscular Hemoglobin 30.5 pg (27.0-31.0); Mean Corpuscular Volume 92.6 fL (78.0-98.0); Platelet Count 287 thou/uL (130-400); RBC Distribution Width 14.5 % (11.5-14.5); Red Blood Cell (RBC) Count 4.48 mill/uL (4.70-6.10); White Blood Cell (WBC) Count 7.6 thou/uL (4.8-10.8)
[2018-07-24 05:44] LABS: Anion Gap 10 mmol/L (10-20); BUN (Urea Nitrogen) 13 mg/dL (8.4-25.7); Calc. Creatinine Clearance 88 mL/min (70-130); Calcium 8.8 mg/dL (7.8-10.44); Carbon Dioxide 25 mmol/L (22-29); Chloride 105 mmol/L (98-107); Estimated GFR-MDRD 74; Glucose 114 mg/dL (70-105); Potassium 3.7 mmol/L (3.5-5.1); Sodium 136 mmol/L (136-145)
[2018-07-24] MEDS ORDERED: Non-Formulary Item 1 EACH (Losartan Potassium [Losartan Potassium] 100 MG) PO SCH (09:00)
[2018-07-24] MEDS: D5 1/2 NS w/20 mEq KCL 1,000 ML IV SCH ×3 (09:30→15:57)
[2018-07-24] MEDS: Famotidine 20 MG TAB PO SCH ×2 (09:30→21:37)
[2018-07-24] MEDS: Losartan 25 MG TAB PO SCH (09:31)
[2018-07-24] MEDS: Nicotine 21 MG PATCH TOP SCH (12:14)
[2018-07-24] MEDS: Famotidine/PF 20 mg/2ml Vial SLOW IVP SCH ×2 (12:24→21:43)
--- NOTE | 2018-07-24 15:28 | PRG ---
DATE OF SERVICE: 07/24/2018 SUBJECTIVE: Diego Wiley is doing well today. He has no complaints. His wound VAC is functional. OBJECTIVE: VITAL SIGNS: Temperature 98.7 degrees, pulse 72, blood pressure 135/89. GENERAL: He is tolerating his diet. ASSESSMENT AND PLAN: Doing well. Await wound VAC arrangements for outpatient care. Job ID: [id number]
[2018-07-24] MEDS: Ondansetron PF 4 MG/2 ML Vial IVP PRN (17:58)
[2018-07-24] MEDS: Morphine 4 MG/ML VIAL SLOW IVP PRN (18:02)
[2018-07-24] MEDS: Enoxaparin Sodium 40 MG/0.4 ML SYRINGE SC SCH (21:37)
[2018-07-25] MEDS: Piperacillin/Tazobactam 3.375 GM in Sodium Chloride 0.9% 100 ML IVPB SCH ×5 (00:25→23:39)
[2018-07-25] MEDS: D5 1/2 NS w/20 mEq KCL 1,000 ML IV SCH ×2 (00:30→10:11)
[2018-07-25] MEDS: Famotidine/PF 20 mg/2ml Vial SLOW IVP SCH (07:40)
[2018-07-25] MEDS: Ondansetron PF 4 MG/2 ML Vial IVP PRN ×3 (07:40→18:44)
[2018-07-25] MEDS: Morphine 4 MG/ML VIAL SLOW IVP PRN (07:47)
[2018-07-25] MEDS: Losartan 25 MG TAB PO SCH (09:00)
[2018-07-25] MEDS: Famotidine 20 MG TAB PO SCH ×2 (09:01→19:59)
[2018-07-25] MEDS ORDERED: Acetaminophen 500 MG TAB PO PRN (12:51)
[2018-07-25] MEDS ORDERED: traMADol HCl 50 MG TAB PO PRN (12:51)
[2018-07-25] MEDS ORDERED: Ibuprofen 600 MG TAB PO PRN (12:51)
[2018-07-25] MEDS ORDERED: Milk Of Magnesia 30 ML UDCUP PO PRN (12:53)
[2018-07-25] MEDS: Nicotine 21 MG PATCH TOP SCH (13:00)
--- NOTE | 2018-07-25 13:16 | PRG ---
DATE OF SERVICE: 07/25/2018 SUBJECTIVE: Mr. Wiley is doing well today. OBJECTIVE: VITAL SIGNS: Temperature 98.7 degrees, heart rate 88, and blood pressure 153/94. LUNGS: Clear to auscultation. CARDIAC: Regular rate and rhythm without murmur or gallop. ABDOMEN: Soft, nondistended, nontender, nontympanitic. His wound VAC is in place. ASSESSMENT AND PLAN: The patient wants regular food. We will plan to advance his diet to regular food, saline lock him. Resume his home medications, and hopefully his wound VAC will be approved for discharge home in the next 24 to 48 hours. Job ID: [id number]
[2018-07-25] MEDS: Potassium Citrate 10 MEQ TAB PO SCH ×2 (17:43→18:30)
[2018-07-25] MEDS: traMADol HCl 50 MG TAB PO PRN (17:52)
[2018-07-25] MEDS: Enoxaparin Sodium 40 MG/0.4 ML SYRINGE SC SCH (20:00)
[2018-07-25] MEDS: Fish Oil 1,000 MG CAP PO SCH (20:47)
[2018-07-25] MEDS: Rosuvastatin 20 MG TAB PO SCH (20:47)
[2018-07-25] MEDS: Multivit, Therapeutic 1 TAB PO SCH (20:47)
[2018-07-26] MEDS: Piperacillin/Tazobactam 3.375 GM in Sodium Chloride 0.9% 100 ML IVPB SCH ×3 (05:51→17:58)
[2018-07-26] MEDS: Ondansetron PF 4 MG/2 ML Vial IVP PRN ×2 (05:57→13:33)
[2018-07-26] MEDS: Potassium Citrate 10 MEQ TAB PO SCH ×2 (08:48→17:58)
[2018-07-26] MEDS: Polyethylene Glycol 3350 17 GM Packet PO SCH (08:49)
[2018-07-26] MEDS: Losartan 25 MG TAB PO SCH (08:49)
[2018-07-26] MEDS: Famotidine 20 MG TAB PO SCH ×2 (08:49→20:28)
[2018-07-26] MEDS: traMADol HCl 50 MG TAB PO PRN ×3 (09:14→21:12)
[2018-07-26] MEDS ORDERED: Acetaminophen 500 MG TAB PO PRN (09:21)
[2018-07-26] MEDS ORDERED: traMADol HCl 50 MG TAB PO PRN (09:22)
[2018-07-26] MEDS ORDERED: HYDROcodone/Acetaminophen 7.5/325 mg Tablet PO PRN ×2 (09:23→09:24)
--- NOTE | 2018-07-26 10:04 | PRG ---
DATE OF SERVICE: 07/26/2018 SUBJECTIVE: Mr. Wiley is doing well. He had his wound VAC changed this morning. He did vomit a little bit of phlegm. He is resting comfortably. He has no abdominal pain. OBJECTIVE: VITAL SIGNS: He is afebrile. Vital signs are stable. ABDOMEN: Soft and nontender. The wound VACs in place. 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 PLAN: Home wound VAC, waiting for to get that approved. Suspect, he will be discharged home tomorrow. Job ID: [id number]
[2018-07-26] MEDS: Nicotine 21 MG PATCH TOP SCH (15:19)
[2018-07-26] MEDS: Multivit, Therapeutic 1 TAB PO SCH (20:28)
[2018-07-26] MEDS: Rosuvastatin 20 MG TAB PO SCH (20:28)
[2018-07-26] MEDS: Enoxaparin Sodium 40 MG/0.4 ML SYRINGE SC SCH (20:29)
[2018-07-26] MEDS: Fish Oil 1,000 MG CAP PO SCH (20:29)
[2018-07-27] MEDS: Piperacillin/Tazobactam 3.375 GM in Sodium Chloride 0.9% 100 ML IVPB SCH ×3 (00:07→11:32)
[2018-07-27] MEDS: Polyethylene Glycol 3350 17 GM Packet PO SCH (08:43)
[2018-07-27] MEDS: Potassium Citrate 10 MEQ TAB PO SCH (08:44)
[2018-07-27] MEDS: Famotidine 20 MG TAB PO SCH (08:45)
[2018-07-27] MEDS: Losartan 25 MG TAB PO SCH (08:45)
[2018-07-27 11:18] VITALS: BP 116/75; TEMP 98.5
--- NOTE | 2018-07-28 02:45 | DIS ---
DATE OF ADMISSION: 07/23/2018 DATE OF DISCHARGE: 07/27/2018 ADMITTING DIAGNOSIS: Postop wound infection, status post an incarcerated strangulated incisional hernia repair with small-bowel resection. DISCHARGE DIAGNOSIS: Postop wound infection, status post an incarcerated strangulated incisional hernia repair with small-bowel resection. PROCEDURES: None. CONDITION ON DISCHARGE: Improved. STAFF: Papito Cortes MD HOSPITAL COURSE: The patient was admitted after his wound was opened in the office. He had wound VAC placed. He immediately felt better. He has had wound care through the weekend. His home wound VAC was approved. He is being discharged home. He will be sent home on Augmentin. Job ID: [id number]
== END 2018-07-27 12:19 | disposition home or self-care (01) ==
LOC: SURG A 09:09
PROVIDERS: ADMIT Surgery; ATTEND Surgery
DX: T81.49XA Infection following a procedure, other surgical site, initial encounter (principal); I10 Essential (primary) hypertension; E78.5 Hyperlipidemia, unspecified; Z88.1 Allergy status to other antibiotic agents; Z79.899 Other long term (current) drug therapy
CPT/HCPCS: 36415; 80048; 85025; 96361; 96365; 96366; 96372; 96375; 96376; G0378; J1650; J2270; J2405; J2543; J2550; J3490; S0028

== ENCOUNTER 2018-07-29 14:10 | Outpatient (CLI) | payer BC ==
[~2018-07-29 14:10] MED LIST: Sodium Chloride 0.9% 15 ML NEB ONE
== END 2018-07-29 14:11 | disposition home or self-care (01) ==
LOC: WCC 14:10
PROVIDERS: ATTEND Family Medicine
DX: T81.89XD Other complications of procedures, not elsewhere classified, subsequent encounter (principal)
CPT/HCPCS: 97605; A4218

== ENCOUNTER 2018-08-02 14:07 | Outpatient (CLI) | payer BC | END 2018-08-02 14:08 | disposition home or self-care (01) | LOC: WCC 14:07 | PROVIDERS: ATTEND Family Medicine | DX: T81.89XD Other complications of procedures, not elsewhere classified, subsequent encounter (principal) | CPT/HCPCS: 97605; A4218 ==

== ENCOUNTER 2018-08-05 13:46 | Outpatient (CLI) | payer BC ==
[2018-08-05] MEDS ORDERED: Sodium Chloride 0.9% 15 ML NEB ONE (15:00)
== END 2018-08-05 13:47 | disposition home or self-care (01) ==
LOC: WCC 13:46
PROVIDERS: ATTEND Family Medicine
DX: T81.89XD Other complications of procedures, not elsewhere classified, subsequent encounter (principal)
CPT/HCPCS: 97605; A4218

== ENCOUNTER 2018-08-09 13:07 | Outpatient (CLI) | payer BC ==
[2018-08-09] MEDS ORDERED: Sodium Chloride 0.9% 15 ML NEB ONE (18:00)
== END 2018-08-09 13:08 | disposition home or self-care (01) ==
LOC: WCC 13:07
PROVIDERS: ATTEND Family Medicine
DX: T81.89XD Other complications of procedures, not elsewhere classified, subsequent encounter (principal)
CPT/HCPCS: 97605; A4218

== ENCOUNTER 2018-08-12 14:02 | Outpatient (CLI) | payer BC ==
--- NOTE | 2018-08-12 16:51 | HP ---
HISTORY OF PRESENT ILLNESS: Mr. Diego Wiley it is a very pleasant 58-year-old gentleman, accompanied by his , who presents to the Wound Center for evaluation of a midline abdominal wound subsequent to surgery for incarcerated incisional hernia on 07/15/[address] Papito Cortes. At a followup visit with Dr. Cortes, the patient was found to have a wound infection and the wound was opened in the office. The patient was subsequently admitted to [facility] and negative pressure therapy was initiated. Upon discharge from [facility], the patient was referred to the Wound Center for assistance with dressing changes of the wound VAC. PAST MEDICAL HISTORY: 1. Nephrolithiasis. 2. Hypertension. 3. Diverticulosis. PAST SURGICAL HISTORY: 1. Sinus surgery. 2. Surgery for kidney stones, multiple. 3. Surgery for retroperitoneal abscess. 4. Surgery for chronic sigmoid diverticulitis/incisional hernia. 5. Ileostomy takedown/incisional hernia repair. 6. Surgery for incarcerated incisional hernia on 07/14/[address] Cortes, as per HPI. MEDICATIONS: 1. [place]. 2. Losartan. 3. Potassium. 4. Crestor. ALLERGIES: LEVAQUIN. SOCIAL HISTORY: Significant for tobacco use of one pack of cigarettes per day for 40 years. The patient admits to the consumption of one drink per day also for 40 years. FAMILY HISTORY: Family history is negative for diabetes mellitus or coronary artery disease. PHYSICAL EXAMINATION: VITAL SIGNS: Temperature 98.5, pulse 93, respirations are 20, and blood pressure 143/78. GENERAL: A 58-year-old gentleman, lying on table in examination room, in no acute distress. HEENT: Normocephalic and atraumatic. NECK: No nuchal rigidity. CHEST: Clear to auscultation. CV: Regular rate and rhythm. ABDOMEN: Soft. A midline abdominal wound is present which measures approximately 5.0 x 3.0 cm. Granulation tissue is present within the wound margins. A sample of granulation tissue was excised with the use of scissors and sent for aerobic and anaerobic cultures. No purulent drainage is associated with the wound. No cellulitis of the anterior abdominal wall is appreciated. No maceration of the skin of the periwound is noted. EXTREMITIES: No clubbing or cyanosis. NEUROLOGIC: Grossly nonfocal. ASSESSMENT AND PLAN: 1. Midline abdominal wound as described above. Negative pressure therapy will be continued with dressing changes of the wound VAC here in the Wound Center. The patient has copious green serous drainage associated with the wound. Antibiotic therapy maybe initiated based upon the results of the tissue cultures obtained today. The patient states that he will be seen by Dr. Cortes in 2 weeks. I will see Kristi Saurabh again in 3 weeks. The patient understands and is in agreement with the preceding treatment plan. 2. Nephrolithiasis. 3. Hypertension. 4. Diverticulosis. Job ID: [id number]
== END 2018-08-12 14:03 | disposition home or self-care (01) ==
LOC: WCC 14:02
PROVIDERS: ATTEND Family Medicine
DX: S31.109D Unspecified open wound of abdominal wall, unspecified quadrant without penetration into peritoneal cavity, subsequent encounter (principal); N20.0 Calculus of kidney; I10 Essential (primary) hypertension; K57.90 Diverticulosis of intestine, part unspecified, without perforation or abscess without bleeding
CPT/HCPCS: 87070; 87205; 97602; 99203; A4218; G0463

== ENCOUNTER 2018-08-17 09:43 | Outpatient (CLI) | payer BC | END 2018-08-17 09:44 | disposition home or self-care (01) | LOC: WCC 09:43 | PROVIDERS: ATTEND Family Medicine | DX: T81.89XD Other complications of procedures, not elsewhere classified, subsequent encounter (principal) | CPT/HCPCS: 97605 ==

== ENCOUNTER 2018-08-20 10:33 | Outpatient (CLI) | payer BC | END 2018-08-20 10:34 | disposition home or self-care (01) | LOC: WCC 10:33 | PROVIDERS: ATTEND Family Medicine | DX: T81.89XD Other complications of procedures, not elsewhere classified, subsequent encounter (principal) | CPT/HCPCS: 97605 ==

== ENCOUNTER 2018-08-23 11:00 | Outpatient (CLI) | payer BC ==
--- NOTE | 2018-08-23 09:48 | PRG ---
DATE OF SERVICE: 08/23/2018 HISTORY: Mr. Diego Wiley is a very pleasant 58-year-old gentleman, accompanied by his , who presents to the Wound Center for evaluation of a midline abdominal wound subsequent to surgery for incarcerated incisional hernia on 07/15/[address] Papito Cortes. At a followup visit with Dr. Cortes, the patient was found to have a wound infection and the wound was opened in the office. The patient was subsequently admitted to [facility] and negative pressure therapy was initiated. Upon discharge from [facility], the patient was referred to the Wound Center for assistance with dressing changes of the wound VAC. PHYSICAL EXAMINATION: VITAL SIGNS: Temperature 98.5, pulse 103, respirations are 18, and blood pressure 137/90. ABDOMEN: Soft. A midline abdominal wound is present, which measures approximately 5.0 x 3.6 cm. Granulation tissue is present within the wound margins. No purulent drainage is associated with the wound. No erythema of the skin surrounding the wound is present. No maceration of the skin of the periwound is noted. ASSESSMENT AND PLAN: 1. Midline abdominal wound as described above. Negative pressure therapy will be continued with dressing changes of the wound VAC here in the Wound Center. Cultures obtained on 08/12/2018 revealed a growth of Pseudomonas aeruginosa, E coli, Enterococcus species, Bacteroides fragilis and fusobacterium species. At the time of the patient's visit on 08/12/2018, the patient was noted to have copious green serous drainage associated with the wound. The patient has been given a prescription for ciprofloxacin 500 mg #21 p.o. b.i.d. x10 days. The patient will be seen by Dr. Cortes later this week. I will see Mr. Wiley again in 2 weeks. 2. Nephrolithiasis. 3. Hypertension. 4. Diverticulosis. Job ID: [id number]
[2018-08-23] MEDS ORDERED: Sodium Chloride 0.9% 15 ML NEB ONE (18:00)
== END 2018-08-23 11:01 | disposition home or self-care (01) ==
LOC: WCC 11:00
PROVIDERS: ATTEND Family Medicine
DX: T81.89XD Other complications of procedures, not elsewhere classified, subsequent encounter (principal); N20.0 Calculus of kidney; I10 Essential (primary) hypertension; K57.90 Diverticulosis of intestine, part unspecified, without perforation or abscess without bleeding
CPT/HCPCS: A4218

== ENCOUNTER 2018-08-27 10:23 | Outpatient (CLI) | payer BC ==
[2018-08-27] MEDS ORDERED: Sodium Chloride 0.9% 15 ML NEB ONE (15:00)
== END 2018-08-27 10:24 | disposition home or self-care (01) ==
LOC: WCC 10:23
PROVIDERS: ATTEND Family Medicine
DX: T81.89XD Other complications of procedures, not elsewhere classified, subsequent encounter (principal)
CPT/HCPCS: A4218

== ENCOUNTER 2018-08-31 11:23 | Outpatient (CLI) | payer BC | END 2018-08-31 11:24 | disposition home or self-care (01) | LOC: WCC 11:23 | PROVIDERS: ATTEND Family Medicine | DX: T81.89XD Other complications of procedures, not elsewhere classified, subsequent encounter (principal) | CPT/HCPCS: 97605; A4218 ==

== ENCOUNTER 2018-09-03 11:05 | Outpatient (CLI) | payer BC ==
[2018-09-03] MEDS ORDERED: Sodium Chloride 0.9% 15 ML NEB ONE (11:11)
== END 2018-09-03 11:06 | disposition home or self-care (01) ==
LOC: WCC 11:05
PROVIDERS: ATTEND Family Medicine
DX: T81.89XD Other complications of procedures, not elsewhere classified, subsequent encounter (principal)
CPT/HCPCS: 97605; A4218

== ENCOUNTER 2018-09-06 13:41 | Outpatient (CLI) | payer BC ==
--- NOTE | 2018-09-06 14:24 | PRG ---
DATE OF SERVICE: 09/06/2018 HISTORY: Mr. Diego Wiley is a very pleasant 58-year-old gentleman, who presents to the Wound Center for evaluation of a midline abdominal wound subsequent to surgery for incarcerated incisional hernia on 07/15/[address] Papito Corets. At a followup visit with Dr. Cortes, the patient was found to have a wound infection and the wound was opened in the office. The patient was subsequently admitted to [facility] and negative pressure therapy was initiated. Upon discharge from [facility], the patient was referred to the Wound Center for assistance with dressing changes of the wound VAC. PHYSICAL EXAMINATION: VITAL SIGNS: Temperature 97.8, pulse 97, respirations 20, and blood pressure 178/101. ABDOMEN: Soft. A midline abdominal wound is present, which measures approximately 3.9 x 3.2 cm. A tunnel is associated with the wound at the 9 o'clock position and is approximately 6.2 cm in length. A tunnel associated with the wound is present at the 5 o'clock to 6 o'clock position, which is approximately 4 cm in length. Granulation tissue is present within the wound margins. A small amount of purulent drainage noted in the area of the tunnel at 5 o'clock to 6 o'clock was sent for aerobic and anaerobic cultures. No erythema of the skin surrounding the wound is present. No maceration of the skin of the periwound is noted. ASSESSMENT AND PLAN: 1. Midline abdominal wound as described above. Negative pressure therapy will be continued with dressing changes of the wound VAC here in the Wound Center. Antibiotic therapy maybe initiated based upon the results of the cultures obtained today. The patient will be seen by Dr. Cortes later this week. I will see Mr. Wiley again in 2 weeks. 2. Nephrolithiasis. 3. Hypertension. 4. Diverticulosis. Job ID: [id number]
== END 2018-09-06 13:42 | disposition home or self-care (01) ==
LOC: WCC 13:41
PROVIDERS: ATTEND Family Medicine
DX: S31.109D Unspecified open wound of abdominal wall, unspecified quadrant without penetration into peritoneal cavity, subsequent encounter (principal); N20.0 Calculus of kidney; I10 Essential (primary) hypertension; K57.90 Diverticulosis of intestine, part unspecified, without perforation or abscess without bleeding
CPT/HCPCS: 87070; 87077; 87186; 87205; A4218

== ENCOUNTER 2018-09-09 14:28 | Outpatient (CLI) | payer BC | END 2018-09-09 14:29 | disposition home or self-care (01) | LOC: WCC 14:28 | PROVIDERS: ATTEND Family Medicine | DX: T81.89XD Other complications of procedures, not elsewhere classified, subsequent encounter (principal) | CPT/HCPCS: 97605; A4218 ==

== ENCOUNTER 2018-09-14 10:14 | Outpatient (CLI) | payer BC ==
[2018-09-14] MEDS ORDERED: Sodium Chloride 0.9% 15 ML NEB ONE (18:00)
== END 2018-09-14 10:15 | disposition home or self-care (01) ==
LOC: WCC 10:14
PROVIDERS: ATTEND Family Medicine
DX: T81.89XD Other complications of procedures, not elsewhere classified, subsequent encounter (principal)
CPT/HCPCS: 97605; A4218

== ENCOUNTER 2018-09-17 13:03 | Outpatient (CLI) | payer BC | END 2018-09-17 13:04 | disposition home or self-care (01) | LOC: WCC 13:03 | PROVIDERS: ATTEND Family Medicine | DX: T81.89XD Other complications of procedures, not elsewhere classified, subsequent encounter (principal) ==

== ENCOUNTER 2018-09-20 11:43 | Outpatient (CLI) | payer BC ==
--- NOTE | 2018-09-20 12:05 | PRG ---
DATE OF SERVICE: 09/20/2018 HISTORY: Mr. Diego Wiley is a very pleasant 58-year-old gentleman, who presents to the Wound Center for evaluation of a midline abdominal wound subsequent to surgery for incarcerated incisional hernia on 07/15/[address] Papito Cortes. At a followup visit with Dr. Cortes, the patient was found to have a wound infection and the wound was opened in the office. The patient was subsequently admitted to [facility] and negative pressure therapy was initiated. Upon discharge from [facility], the patient was referred to the Wound Center for assistance with dressing changes of the wound VAC. PHYSICAL EXAMINATION: VITAL SIGNS: Temperature 98.4, pulse 91, respirations 19, and blood pressure 141/85. ABDOMEN: Soft. A midline abdominal wound is present, which measures approximately 2.8 x 3.0 cm. A tunnel is associated with the wound at the 9 o'clock position and is approximately 7.2 cm in length. A tunnel is associated with the wound at the 6 o'clock position, which is approximately 4.8 cm in length. Granulation tissue is present within the wound margins. No purulent drainage is associated with the wound. No erythema of the skin surrounding the wound is present. No maceration of the skin of the periwound is noted. ASSESSMENT AND PLAN: 1. Midline abdominal wound as described above. Negative pressure therapy will be continued with dressing changes of the wound VAC here in the Wound Center. The patient was placed on Bactrim DS #20 one p.o. b.i.d. x10 days after tissue cultures revealed the growth of Escherichia coli sensitive to Bactrim. The patient states that he has been taking Bactrim DS as prescribed. He states that the drainage associated with his wound has decreased significantly. The patient will be seen by Dr. Cortes in 1 week. I will see Mr. Wiley again in 2 weeks. 2. Nephrolithiasis. 3. Hypertension. 4. Diverticulosis. Job ID: [id number]
[2018-09-20] MEDS ORDERED: Sodium Chloride 0.9% 15 ML NEB ONE (15:00)
== END 2018-09-20 11:44 | disposition home or self-care (01) ==
LOC: WCC 11:43
PROVIDERS: ATTEND Family Medicine
DX: T81.89XD Other complications of procedures, not elsewhere classified, subsequent encounter (principal); N20.0 Calculus of kidney; I10 Essential (primary) hypertension; K57.90 Diverticulosis of intestine, part unspecified, without perforation or abscess without bleeding
CPT/HCPCS: A4218

== ENCOUNTER 2018-09-27 09:31 | Outpatient (CLI) | payer BC ==
[2018-09-27] MEDS ORDERED: Sodium Chloride 0.9% 15 ML NEB ONE (15:00)
== END 2018-09-27 09:32 | disposition home or self-care (01) ==
LOC: WCC 09:31
PROVIDERS: ATTEND Family Medicine
DX: T81.89XD Other complications of procedures, not elsewhere classified, subsequent encounter (principal)
CPT/HCPCS: 97605; A4218

== ENCOUNTER 2018-09-30 13:14 | Outpatient (CLI) | payer BC | END 2018-09-30 13:15 | disposition home or self-care (01) | LOC: WCC 13:14 | PROVIDERS: ATTEND Family Medicine | DX: T81.89XD Other complications of procedures, not elsewhere classified, subsequent encounter (principal) | CPT/HCPCS: 97605 ==

== ENCOUNTER 2018-10-04 15:21 | Outpatient (CLI) | payer BC | END 2018-10-04 15:22 | disposition home or self-care (01) | LOC: WCC 15:21 | PROVIDERS: ATTEND Family Medicine | DX: T81.89XD Other complications of procedures, not elsewhere classified, subsequent encounter (principal) | CPT/HCPCS: A4218 ==

== ENCOUNTER 2019-01-20 13:13 | Outpatient (CLI) | payer BC ==
--- NOTE | 2019-01-20 14:13 | CT ---
CT ABDOMEN AND PELVIS WITH ORAL AND IV CONTRAST: HISTORY: Hernia. COMPARISON: 07/14/2018 FINDINGS: The lung bases are clear. The liver, spleen, pancreas, adrenal glands and right kidney are normal. No nobstructing left renal calculi are again seen. No calcified gallstones are noted. No free air, free fluid or lymphadenopathy is seen in the abdomen or pelvis. There are vascular calci fications without evidence of aneurysmal dilatation of the abdominal aorta. There are degenerative ch anges in the spine. There is a midline/right paramedian abdominal wall hernia, containing nonobstruct ing loops of small and large bowel. Also noted is a small bowel loop containing a right lower quadran t anterior abdominal wall hernia without obstruction. The small bowel loops are not abnormally dilate d. A normal appearing appendix is seen. There are small fat-containing bilateral inguinal hernias. IMPRESSION: 1. Nonobstructing bowel containing abdominal wall herniae. 2. Nonobstructing left renal calculi. POS: [facility]
[2019-01-20] MEDS ORDERED: Iopamidol-370 76% 500 ML 1 ML ONE (14:57)
== END 2019-01-20 13:14 | disposition home or self-care (01) ==
LOC: BICCT 13:13
PROVIDERS: ATTEND Surgery
DX: K43.2 Incisional hernia without obstruction or gangrene (principal); N20.0 Calculus of kidney; K46.9 Unspecified abdominal hernia without obstruction or gangrene
CPT/HCPCS: 74177; 82565; Q9967

== ENCOUNTER 2020-01-13 16:44 | Outpatient (CLI) | payer OTHER ==
[2020-01-13 18:40] LABS: #Basophils 0.1 10x3/uL (0.0-0.2); #Eosinphils 0.2 10x3/uL (0.0-0.5); #Monocytes 0.7 10x3/uL (0.0-1.1); #Neutrophils 4.6 10x3/uL (1.5-8.4); %Basophils 1.1 % (0.0-2.0); %Eosinophils 2.1 % (0.0-6.0); %Lymphocytes 23.4 % (18.0-47.0); %Monocytes 9.9 % (0.0-10.0); %Neutrophils 63.1 % (40.0-75.0); Hemoglobin 16.5 g/dL (14.0-18.0); Mean Corpuscular HGB CONC 33.3 G/DL (32.0-36.0); Mean Corpuscular Hemoglobin 31.6 PG (27.0-33.0); Mean Corpuscular Volume 94.8 fl (80.0-100.0); Mean Platelet Volume 10.5 fl (7.4-10.4); Platelet Count 186 10x3/uL (130-400); RBC Distribution Width 13.5 % (11.5-14.5); Red Blood Cell (RBC) Count 5.22 10x6/uL (4.40-5.80); White Blood Cell (WBC) Count 7.3 10x3/uL (4.5-11.0)
[2020-01-13 18:52] LABS: Anion Gap 16 mmol/L (10-20); BUN (Urea Nitrogen) 25 mg/dL (8.4-25.7); Calc. Creatinine Clearance 0 mL/min (70-130); Calcium 9.7 mg/dL (7.8-10.44); Carbon Dioxide 24 mmol/L (23-31); Chloride 106 mmol/L (98-107); Estimated GFR-MDRD 55; Glucose 82 mg/dL (80-115); Potassium 4.9 mmol/L (3.5-5.1); Sodium 141 mmol/L (136-145)
[2020-01-14 16:11] LABS: SARS-CoV-2 MS2 Positive; SARS-CoV-2 N Gene Negative; SARS-CoV-2 S Gene Negative; SARS-CoV-2 by NAA Not Detected (NotDetected); SARS-CoV-2 orf1ab Negative
== END 2020-01-13 16:45 | disposition home or self-care (01) ==
LOC: LABBT 16:44
PROVIDERS: ATTEND Surgery
DX: Z01.812 Encounter for preprocedural laboratory examination (principal); Z20.828 Contact with and (suspected) exposure to other viral communicable diseases; K43.2 Incisional hernia without obstruction or gangrene
CPT/HCPCS: 80048; 85025; 87635; U0003

== ENCOUNTER 2020-01-17 07:00 | Observation (INO) | payer OTHER ==
[2020-01-16 09:37] VITALS: BMI 40.4
[2020-01-17] MEDS ORDERED: Midazolam HCl 2 mg/2 ml Vial ONE (09:34)
[2020-01-17] MEDS ORDERED: Fentanyl 250 MCG/5 ML VIAL ONE (09:34)
[2020-01-17] MEDS ORDERED: HYDROmorphone 2 MG/ML VIAL ONE (11:14)
[2020-01-17] MEDS ORDERED: Calcium Chloride 1 GM/10 ML Abboject SYRINGE ONE (11:47)
[2020-01-17] MEDS ORDERED: Labetalol HCl 100 MG/20 ML VIAL ONE (11:47)
[2020-01-17] MEDS ORDERED: PROPOFOL 200 MG/20 ML VIAL ONE (11:47)
[2020-01-17] MEDS ORDERED: Glycopyrrolate 0.2 MG/ML 5 ML SYRINGE ONE (11:47)
[2020-01-17] MEDS ORDERED: Ondansetron PF 4 MG/2 ML Vial ONE (11:47)
[2020-01-17] MEDS ORDERED: Dexamethasone 20 MG/5 ML VIAL ONE (11:47)
[2020-01-17] MEDS ORDERED: ePHEDrine 50 MG/ML VIAL ONE (11:47)
[2020-01-17] MEDS ORDERED: Rocuronium Bromide 10 MG/ML (10ML VIAL) ONE (11:47)
[2020-01-17] MEDS ORDERED: Ondansetron PF 4 MG/2 ML Vial IVP PRN ×2 (13:03→13:15)
[2020-01-17] MEDS ORDERED: Dextrose 50% Abboject 50 ML SYRINGE SLOW IVP PRN (13:03)
[2020-01-17] MEDS ORDERED: hydrALAZINE 20 MG/ML VIAL SLOW IVP PRN (13:03)
[2020-01-17] MEDS ORDERED: Dextrose 5% in Water 1,000 ML IV PRN (13:03)
[2020-01-17] MEDS ORDERED: Promethazine HCl 25 MG/ML VIAL IM PRN ×2 (13:03→13:15)
[2020-01-17] MEDS ORDERED: diphenhydrAMINE 50 MG/ML VIAL IVP PRN (13:15)
[2020-01-17] MEDS ORDERED: Naloxone HCl 0.4 mg/ml Vial IV PRN (13:15)
[2020-01-17] MEDS ORDERED: Zolpidem Tartrate 5 MG TAB PO PRN (13:15)
[2020-01-17] MEDS ORDERED: diphenhydrAMINE 25 MG CAP PO PRN (13:15)
[2020-01-17] MEDS ORDERED: diphenhydrAMINE 50 MG/ML VIAL IM PRN (13:15)
[2020-01-17] MEDS ORDERED: Communication Order-Pharmacy FS SCH (13:15)
[2020-01-17] MEDS ORDERED: fentaNYL Citrate/PF 2,000 MCG in Sodium Chloride 0.9% 60 ML IV PRN (13:15)
[2020-01-17] MEDS: Sodium Chloride 0.9% 1,000 ML IV SCH (15:24)
[2020-01-17] MEDS: Famotidine/PF 20 mg/2ml Vial SLOW IVP SCH (20:27)
[2020-01-17] MEDS: Famotidine 20 MG TAB PO SCH (20:31)
[2020-01-17] MEDS: Allopurinol 300 MG TAB PO SCH (20:31)
[2020-01-18 03:44] LABS: #Basophils 0.1 thou/uL (0.0-0.2); #Eosinphils 0.1 thou/uL (0.0-0.7); #Lymphocytes 0.9 thou/uL (1.20-3.40); #Monocytes 1.1 thou/uL (0.11-0.59); #Neutrophils 11.1 thou/uL (1.40-6.50); %Basophils 0.4 % (0.0-1.0); %Eosinophils 0.6 % (0.0-10.0); %Lymphocytes 6.8 % (21.0-51.0); %Monocytes 8.1 % (0.0-10.0); Hemoglobin 15.3 g/dL (14.0-18.0); Mean Corpuscular Hemoglobin 32.2 pg (27.0-31.0); Mean Corpuscular Volume 97.5 fL (78.0-98.0); Mean Platelet Volume 7.3 fL (7.4-10.4); Platelet Count 185 thou/uL (130-400); RBC Distribution Width 12.3 % (11.5-14.5); Red Blood Cell (RBC) Count 4.77 mill/uL (4.70-6.10); White Blood Cell (WBC) Count 13.2 thou/uL (4.8-10.8)
[2020-01-18 04:08] LABS: Anion Gap 14 mmol/L (10-20); BUN (Urea Nitrogen) 23 mg/dL (8.4-25.7); Calc. Creatinine Clearance 134 mL/min (70-130); Calcium 8.7 mg/dL (7.8-10.44); Carbon Dioxide 25 mmol/L (23-31); Chloride 102 mmol/L (98-107); Glucose 129 mg/dL (80-115); Sodium 137 mmol/L (136-145)
[2020-01-18] MEDS ORDERED: FLU VACC QS2020-21(6MOS UP)/PF 60 MCG/0.5 ML SYRINGE IM ONE (09:00)
[2020-01-18] MEDS: Famotidine 20 MG TAB PO SCH ×2 (09:22→20:08)
[2020-01-18] MEDS: Losartan 25 MG TAB PO SCH (09:22)
[2020-01-18] MEDS: Famotidine/PF 20 mg/2ml Vial SLOW IVP SCH ×2 (09:26→20:16)
[2020-01-18] MEDS: Sodium Chloride 0.9% 1,000 ML IV SCH (09:28)
[2020-01-18] MEDS ORDERED: Fentanyl 100 MCG/2 ML VIAL SLOW IVP PRN ×2 (10:56)
[2020-01-18] MEDS ORDERED: HYDROcodone/Acetaminophen 7.5/325 mg Tablet PO PRN (10:56)
[2020-01-18] MEDS ORDERED: Sodium Chloride 0.9% 1,000 ML IV SCH (10:57)
[2020-01-18] MEDS: HYDROcodone/Acetaminophen 7.5/325 mg Tablet PO PRN ×2 (14:38→20:08)
[2020-01-18] MEDS: Allopurinol 300 MG TAB PO SCH (20:08)
--- NOTE | 2020-01-18 22:37 | OP ---
DATE OF PROCEDURE: 01/17/2020 PREOPERATIVE DIAGNOSES: Large incisional hernia, midline abdomen and right lower quadrant ostomy site with loss of domain. POSTOPERATIVE DIAGNOSES: Large incisional hernia, midline abdomen and right lower quadrant ostomy site with loss of domain. PROCEDURES PERFORMED: 1. Incisional hernia repair with mesh 20 x [address], 10 x [address] 2. Release of components, right abdomen and left abdomen (component separation repair). 3. Lysis of adhesions. ANESTHESIA: General. ESTIMATED BLOOD LOSS: 100 mL. COMPLICATIONS: None. DESCRIPTION OF PROCEDURE: The patient was taken to the operating room and laid supine on the operating room table. A Bryan catheter was placed. The abdomen was prepped and draped in a sterile fashion. The previous midline incision was ellipsed out. There was chronic scarring in the area of the umbilicus due to the thin nature of the umbilical skin. This was removed. Dissection was taken down to hernia sac. This was dissected back to the edges of fascia. Flaps were then raised over the top of the rectus muscle on both sides, high up in the incision. The abdomen was entered. There was one deserosalization of the small bowel that was oversewn using silk suture. Very carefully, the abdomen was entered along the full extent. Hernia sac was dissected back and removed at the edge of the fascia on both sides. Multiple intraabdominal adhesions had to be sharply taken down from this area and the posterior skin. Dissection was taken down in the area of the right lower quadrant ostomy. There was some small bowel and the cecum in the right lower quadrant ostomy that had to be reduced. After the posterior fascia was cleared, the edges of the good fascia were freshened. This was a sizable defect that would not close primarily without tension. Decision was made for component separation. The fascia was incised along the rectus. A posterior fascial plane was developed posterior to the rectus muscle laterally just lateral to the rectus. The posterior aponeurosis was entered and dissected further lateral. This was performed on the right and the left. This allowed for bringing the posterior fascia back to the midline under no tension. In the area of the previous ostomy, a hole was made full thickness. This was closed using #1 PDS suture. A 20 x [address] mesh was brought into the sterile field. The posterior fascia was able to be closed at the midline using running suture. The mesh was placed on top of this in that space. A second piece of mesh had to be placed in the top portion of the repair in order to fully cover. The mesh was sewn to the posterior fascia using interrupted Prolene sutures. The anterior fascia was then able to be brought to the midline under very little tension. It was closed using running #1 PDS from the top and the bottom and tied in the middle. A 19 round drain had been left in the subfascial space and on top of the mesh, a second drain was left in the subcu. All layers were irrigated copiously before closure. Midline incision was closed using interrupted Vicryl sutures followed by running 4-0 Monocryl and Dermabond. The patient was sent to Recovery in stable condition. All instrument counts, needle counts, and lap counts were correct. Job ID: [id number]
[2020-01-19] MEDS: HYDROcodone/Acetaminophen 7.5/325 mg Tablet PO PRN ×2 (02:01→08:12)
[2020-01-19] MEDS: Losartan 25 MG TAB PO SCH (08:11)
[2020-01-19] MEDS: Famotidine 20 MG TAB PO SCH (08:11)
[2020-01-19] MEDS: Famotidine/PF 20 mg/2ml Vial SLOW IVP SCH (08:14)
[2020-01-19 08:48] VITALS: BP 145/88; TEMP 98.1
[2020-01-19] MEDS ORDERED: Polyethylene Glycol 3350 17 GM Packet PO SCH (09:00)
--- NOTE | 2020-01-19 09:08 | DIS ---
DATE OF ADMISSION: 01/17/2020 DATE OF DISCHARGE: 01/19/2020 ADMISSION DIAGNOSIS: Incisional hernia. PROCEDURE: Incisional hernia repair with mesh by Dr. Cortes. CONDITION ON DISCHARGE: Improved. HOSPITAL COURSE: Postop day #1, the patient had tolerated a clear liquid diet. He was advanced to full liquids. On postop day #2, he tolerated full liquids. He is ready for solid food and hungry. His pain is well controlled. His vital signs are stable. He is to be discharged home. Prescriptions for [place] and Zofran sent to his pharmacy. He will follow up with me Thursday morning for drain removal. Job ID: [id number]
== END 2020-01-19 14:24 | disposition home or self-care (01) ==
LOC: SDC 07:00 → ONC 13:03
PROVIDERS: ADMIT Surgery; ATTEND Surgery
PROC: 0WUF0JZ Supplement Abdominal Wall with Synthetic Substitute, Open Approach (ICD-10-PCS; principal; 2020-01-17)
DX: K43.2 Incisional hernia without obstruction or gangrene (principal); K66.0 Peritoneal adhesions (postprocedural) (postinfection); Z79.899 Other long term (current) drug therapy; Z88.1 Allergy status to other antibiotic agents; Z93.2 Ileostomy status
CPT/HCPCS: 36415; 80048; 85025; G0378; J0690; J1100; J1170; J2250; J2405; J2704; J3010; J3490

== ENCOUNTER 2020-11-12 14:38 | Outpatient (CLI) | payer OTHER | END 2020-11-12 14:39 | disposition home or self-care (01) | LOC: BICCT 14:38 | PROVIDERS: ATTEND Family Medicine | DX: Z12.2 Encounter for screening for malignant neoplasm of respiratory organs (principal); F17.210 Nicotine dependence, cigarettes, uncomplicated | CPT/HCPCS: 71271 ==

== ENCOUNTER 2022-05-14 15:14 | Outpatient (CLI) | payer OTHER | END 2022-05-14 15:15 | disposition home or self-care (01) | LOC: DTY/OP 15:14 | PROVIDERS: ATTEND Family Medicine | DX: E11.65 Type 2 diabetes mellitus with hyperglycemia (principal) | CPT/HCPCS: 97802 ==

== ENCOUNTER 2023-04-30 12:47 | Outpatient (CLI) | payer OTHER, MEDICARE | END 2023-04-30 12:48 | disposition home or self-care (01) | LOC: CT 12:47 | PROVIDERS: ATTEND Internal Medicine Cardiovascular Disease | DX: R09.89 Other specified symptoms and signs involving the circulatory and respiratory systems (principal); I65.23 Occlusion and stenosis of bilateral carotid arteries; E04.2 Nontoxic multinodular goiter | CPT/HCPCS: 70498 ==

== ENCOUNTER 2023-05-07 14:51 | Outpatient (CLI) | payer OTHER, MEDICARE | END 2023-05-07 14:52 | disposition home or self-care (01) | LOC: CT 14:51 | PROVIDERS: ATTEND Family Medicine | DX: Z12.2 Encounter for screening for malignant neoplasm of respiratory organs (principal); F17.210 Nicotine dependence, cigarettes, uncomplicated | CPT/HCPCS: 71271 ==

== ENCOUNTER 2023-05-08 14:10 | Outpatient (CLI) | payer OTHER, MEDICARE | END 2023-05-08 14:11 | disposition home or self-care (01) | LOC: ULT 14:10 | PROVIDERS: ATTEND Internal Medicine Cardiovascular Disease | DX: E04.2 Nontoxic multinodular goiter (principal) | CPT/HCPCS: 76536 ==

== ENCOUNTER 2023-08-26 13:44 | Outpatient (CLI) | payer OTHER, MEDICARE ==
[2023-08-26 14:57] LABS: #Basophils 0.05 10x3/uL (0.0-0.2); #Eosinphils 0.24 10x3/uL (0.0-0.5); #Neutrophils 4.51 10x3/uL (1.5-8.4); %Basophils 0.8 % (0.0-2.0); %Eosinophils 3.7 % (0.0-6.0); %Lymphocytes 19.1 % (18.0-47.0); %Monocytes 7.6 % (0.0-10.0); %Neutrophils 68.6 % (40.0-75.0); Hemoglobin 16.9 g/dL (13.5-17.5); Mean Corpuscular HGB CONC 34.5 g/dL (32.0-36.0); Mean Corpuscular Hemoglobin 32.3 pg (27.0-33.0); Mean Corpuscular Volume 93.5 fL (81.2-95.1); Mean Platelet Volume 10.2 fL (7.4-10.4); Platelet Count 158 10x3/uL (150-450); RBC Distribution Width 12.7 % (11.5-14.5); Red Blood Cell (RBC) Count 5.24 10x6/uL (4.32-5.72); White Blood Cell (WBC) Count 6.6 10x3/uL (3.5-10.5)
[2023-08-26 15:04] LABS: Anion Gap 10 mmol/L (10-20); BUN (Urea Nitrogen) 27 mg/dL (8.4-25.7); Calc. Creatinine Clearance 0 mL/min (70-130); Calcium 9.4 mg/dL (7.8-10.44); Carbon Dioxide 26 mmol/L (23-31); Chloride 105 mmol/L (98-107); Estimated GFR 58; Glucose 245 mg/dL (80-115); Potassium 4.1 mmol/L (3.5-5.1); Sodium 137 mmol/L (136-145)
== END 2023-08-26 13:45 | disposition home or self-care (01) ==
LOC: LABBT 13:44
PROVIDERS: ATTEND Orthopaedic Surgery
DX: Z01.818 Encounter for other preprocedural examination (principal); S46.802A Unspecified injury of other muscles, fascia and tendons at shoulder and upper arm level, left arm, initial encounter; M75.122 Complete rotator cuff tear or rupture of left shoulder, not specified as traumatic
CPT/HCPCS: 80048; 85025; 93005; 93010

== ENCOUNTER 2023-09-03 06:06 | Day surgery (SDC) | payer OTHER, MEDICARE ==
[2023-08-26 14:31] VITALS: BMI 39.4
[2023-09-03] MEDS ORDERED: fentaNYL 50 mcg/mL 1 mL Vial ONE (06:57)
[2023-09-03] MEDS ORDERED: Midazolam HCl 2 mg/2 ml Vial ONE (06:57)
[2023-09-03] MEDS ORDERED: Lidocaine 1% (PF) 30 ML VIAL ONE ×2 (06:58→07:20)
[2023-09-03] MEDS ORDERED: Sodium Chloride 0.9% 100 ML ONE (07:20)
[2023-09-03] MEDS ORDERED: EPINEPHrine 1 MG/ML VIAL ONE (07:20)
[2023-09-03] MEDS ORDERED: CEFAZOLIN 2 GM VIAL ONE (07:20)
[2023-09-03] MEDS ORDERED: Lidocaine 2% PF 5 ML VIAL ONE (07:31)
[2023-09-03] MEDS ORDERED: PROPOFOL 20 ML ONE (07:31)
[2023-09-03] MEDS ORDERED: ePHEDrine Sulfate 50 MG/10 ML VIAL ONE (07:44)
[2023-09-03] MEDS ORDERED: Promethazine HCl 25 MG/ML VIAL IM PRN (07:45)
[2023-09-03] MEDS ORDERED: HYDROcodone/Acetaminophen 5/325 mg Tablet PO PRN ×2 (07:45)
[2023-09-03] MEDS ORDERED: Ropivacaine 0.2% 550 ML 550 ML NERVE BLCK SCH (07:45)
[2023-09-03] MEDS ORDERED: Ondansetron PF 4 MG/2 ML Vial IVP PRN (07:45)
[2023-09-03] MEDS ORDERED: traMADol HCl 50 MG TAB PO PRN ×2 (07:45)
[2023-09-03] MEDS ORDERED: Zolpidem Tartrate 5 MG TAB PO PRN (07:45)
[2023-09-03] MEDS ORDERED: Dexamethasone 20 MG/5 ML VIAL ONE (08:05)
[2023-09-03] MEDS ORDERED: Ketorolac Tromethamine 30 MG (1 mL) VIAL ONE (08:05)
[2023-09-03] MEDS ORDERED: Ondansetron PF 4 MG/2 ML Vial ONE (08:05)
[2023-09-03] MEDS ORDERED: HYDROmorphone 2 MG/ML VIAL ONE (09:07)
== END 2023-09-03 13:05 | disposition home or self-care (01) ==
LOC: SDC 06:06
PROVIDERS: ATTEND Orthopaedic Surgery
PROC: 0LS44ZZ Reposition Left Upper Arm Tendon, Percutaneous Endoscopic Approach (ICD-10-PCS; principal; 2023-09-03)
PROC: 0LS40ZZ Reposition Left Upper Arm Tendon, Open Approach (ICD-10-PCS; principal; 2023-09-03)
DX: S46.802A Unspecified injury of other muscles, fascia and tendons at shoulder and upper arm level, left arm, initial encounter (principal); M75.122 Complete rotator cuff tear or rupture of left shoulder, not specified as traumatic; R82.994 Hypercalciuria; E11.9 Type 2 diabetes mellitus without complications; I10 Essential (primary) hypertension; E78.00 Pure hypercholesterolemia, unspecified; H91.93 Unspecified hearing loss, bilateral; Z98.41 Cataract extraction status, right eye; Z98.42 Cataract extraction status, left eye; Z98.890 Other specified postprocedural states; Z79.4 Long term (current) use of insulin; Z79.84 Long term (current) use of oral hypoglycemic drugs; Z79.899 Other long term (current) drug therapy; Z87.891 Personal history of nicotine dependence; Z88.1 Allergy status to other antibiotic agents
CPT/HCPCS: 36416; A4306; C1713; J0171; J1100; J1170; J1885; J2001; J2250; J2405; J2704; J2795; J3010; J3490